=== PATIENT | female | born 1955 | race Caucasian/White ===

== ENCOUNTER → 2016-11-04 | Outpatient (CLI) | payer BC ==
--- NOTE | 2016-11-04 13:56 | CT ---
EXAMINATION TYPE: CT sinus wo con DATE OF EXAM: 11/04/2016 COMPARISON: NONE HISTORY: Sinusitis CT DLP: [address] of the paranasal sinuses was performed in the axial and coronal planes. Bone and soft tissue settings are submitted. The paranasal sinuses demonstrate normal aeration and development. The paranasal sinuses are free of mucosal thickening or air fluid level. The osteal meatal units are patent bilaterally. Nasal septal deviation from right to left. No bony destructive changes are seen within the field of view. IMPRESSION: Nasal septal deviation from right to left.
== END | disposition home or self-care (01) ==
LOC: RADCTMAIN 13:07
PROVIDERS: ATTEND Otolaryngology
DX: J34.2 Deviated nasal septum (principal); J32.9 Chronic sinusitis, unspecified
CPT/HCPCS: 70486

== ENCOUNTER → 2020-02-12 | Outpatient (CLI) | payer MEDICARE, OTHER | END | disposition home or self-care (01) | LOC: LABWHC1 10:38 | PROVIDERS: ATTEND Internal Medicine | DX: Z20.828 Contact with and (suspected) exposure to other viral communicable diseases (principal) | CPT/HCPCS: U0003; C9803 ==

== ENCOUNTER → 2020-02-18 | Outpatient (CLI) | payer MEDICARE, OTHER ==
--- NOTE | 2020-02-18 14:34 | XR ---
EXAMINATION TYPE: XR chest 2V DATE OF EXAM: 02/18/2020 COMPARISON: NONE HISTORY: Shortness of breath TECHNIQUE: Frontal and lateral views of the chest are obtained. FINDINGS: Scattered senescent parenchymal changes noted. Hyperinflation compatible with COPD. No evidence for infiltrate. No evidence for atelectasis. Heart size is stable. Mediastinal structures are stable and grossly unremarkable. No evidence for hilar prominence. Degenerative changes dorsal spine. IMPRESSION: 1. No evidence for acute pulmonary disease.
== END | disposition home or self-care (01) ==
LOC: LABPAT 11:40
PROVIDERS: ATTEND Orthopaedic Surgery Orthopaedic Surgery of the Spine
DX: Z01.818 Encounter for other preprocedural examination (principal); Z79.01 Long term (current) use of anticoagulants; M48.02 Spinal stenosis, cervical region
CPT/HCPCS: 71046

== ENCOUNTER → 2020-04-07 | Outpatient (CLI) | payer MEDICARE, OTHER ==
[2020-04-07 12:22] LABS: Appearance,Urine Clear (Clear); Basophils # (A) 0.1 k/uL (0-0.2); Basophils % (A) 1 %; Bilirubin,Urine Negative (Negative); Blood,Urine Negative (Negative); Color,Urine Light Yellow; Eosinophils # (A) 0.2 k/uL (0-0.7); Eosinophils % (A) 5 %; Glucose,Urine (UA) Negative (Negative); HCT 39.6 % (34.0-46.0); HGB 12.7 gm/dL (11.4-16.0); Hypochromasia Moderate; Ketones,Urine Negative (Negative); Leukocyte Esterase,Urine Negative (Negative); Lymphocytes # (A) 1.1 k/uL (1.0-4.8); Lymphocytes % (A) 21 %; MCH 28.8 pg (25.0-35.0); MCHC 32.1 g/dL (31.0-37.0); MCV 89.6 fL (80.0-100.0); Mean Platelet Volume 7.6; Monocytes # (A) 0.3 k/uL (0-1.0); Monocytes % (A) 6 %; Neutrophils # (A) 3.4 k/uL (1.3-7.7); Neutrophils % (A) 65 %; Nitrite,Urine Negative (Negative); PH, Urine 6.5 (5.0-8.0); Platelet Count 268 k/uL (150-450); Protein,Urine Negative (Negative); RBC 4.42 m/uL (3.80-5.40); RDW 15.1 % (11.5-15.5); Specific Gravity,Urine 1.006 (1.001-1.035); Urobilinogen,Urine <2.0 mg/dL (<2.0); WBC 5.3 k/uL (3.8-10.6)
[2020-04-07 12:27] LABS: INR 0.9 (<1.2); Partial Thromboplastin Time 22.4 sec (22.0-30.0); Prothrombin Time 9.6 sec (9.0-12.0)
[2020-04-07 12:31] LABS: ALT 26 U/L (4-34); AST 27 U/L (14-36); African American GFR (CKD) >90 (>60 ml/min/1.73 sqM); Albumin 3.6 g/dL (3.5-5.0); Alkaline Phosphatase 102 U/L (38-126); Anion Gap 5 mmol/L; Blood Urea Nitrogen 16 mg/dL (7-17); Calcium 9.6 mg/dL (8.4-10.2); Carbon Dioxide 27 mmol/L (22-30); Chloride 108 mmol/L (98-107); Glucose 100 mg/dL (74-99); Non-African American GFR(CKD) >90 (>60 ml/min/1.73 sqM); Potassium 4.4 mmol/L (3.5-5.1); Sodium 140 mmol/L (137-145); Total Bilirubin 0.4 mg/dL (0.2-1.3)
--- NOTE | 2020-04-07 12:35 | XR ---
EXAMINATION TYPE: XR chest 2V DATE OF EXAM: 04/07/2020 COMPARISON: Chest x-ray February 18, 2020 HISTORY: Presurgical testing. TECHNIQUE: Frontal and lateral views of the chest are obtained. FINDINGS: There is no focal air space opacity, pleural effusion, or pneumothorax seen. The cardiac silhouette size is within normal limits. The osseous structures are intact. IMPRESSION: No acute cardiopulmonary process. No significant change from prior.
== END | disposition home or self-care (01) ==
LOC: LABPAT 11:25
PROVIDERS: ATTEND Orthopaedic Surgery Orthopaedic Surgery of the Spine
DX: Z01.818 Encounter for other preprocedural examination (principal); M48.02 Spinal stenosis, cervical region
CPT/HCPCS: 71046; 80053; 81003; 85025; 85610; 85730

== ENCOUNTER 2020-04-16 06:48 | Day surgery (SDC) | payer MEDICARE, OTHER ==
[2020-02-18 14:29] LABS: HCT 39.7 % (34.0-46.0); HGB 12.8 gm/dL (11.4-16.0); Hypochromasia Slight; MCH 28.3 pg (25.0-35.0); MCHC 32.2 g/dL (31.0-37.0); MCV 87.9 fL (80.0-100.0); Platelet Count 295 k/uL (150-450); RBC 4.52 m/uL (3.80-5.40); RDW 15.8 % (11.5-15.5); WBC 6.5 k/uL (3.8-10.6)
[2020-02-18 14:40] LABS: Prothrombin Time 10.1 sec (9.0-12.0)
[2020-02-18 14:42] LABS: African American GFR (CKD) >90 (>60 ml/min/1.73 sqM); Anion Gap 4 mmol/L; Blood Urea Nitrogen 15 mg/dL (7-17); Calcium 9.7 mg/dL (8.4-10.2); Carbon Dioxide 31 mmol/L (22-30); Chloride 104 mmol/L (98-107); Glucose 89 mg/dL (74-99); Non-African American GFR(CKD) 81 (>60 ml/min/1.73 sqM); Potassium 4.5 mmol/L (3.5-5.1); Sodium 139 mmol/L (137-145)
[2020-02-18 14:50] LABS: Appearance,Urine Clear (Clear); Bilirubin,Urine Negative (Negative); Blood,Urine Negative (Negative); Color,Urine Yellow; Glucose,Urine (UA) Negative (Negative); Ketones,Urine Negative (Negative); Leukocyte Esterase,Urine Large (Negative); Mucus,Urine Occasional /hpf; Nitrite,Urine Negative (Negative); PH, Urine 5.5 (5.0-8.0); Protein,Urine Negative (Negative); RBC,Urine 3 /hpf (0-5); Specific Gravity,Urine 1.015 (1.001-1.035); Squamous Epithelial Cell,Urine 4 /hpf (0-4); Urobilinogen,Urine <2.0 mg/dL (<2.0); WBC,Urine 9 /hpf (0-5)
[2020-04-08 09:30] VITALS: BMI 29.7
[~2020-04-16 06:48] MED LIST: LACTATED RINGERS 1,000 ML IV SCH; LIDOCAINE 1% (10MG/ML) FOR IV START INTRADERMA PRN; MIDAZOLAM 2 MG/2 ML VIAL IV PRN; ONDANSETRON 4 MG/2 ML VIAL IVP ONE; ceFAZolin 1,000 MG in SODIUM CHLORIDE 0.9% IRRIGATIO 1,000 ML IRRIGATION ONE
[2020-04-16] MEDS ORDERED: HYDROmorphone 0.5 MG/0.5 ML SYRINGE IVP PRN ×2 (07:00→10:28)
[2020-04-16] MEDS ORDERED: DEXAMETHASONE SOD PHOSPHATE 10 MG/ML 1 ML VIAL ONE (08:00)
[2020-04-16] MEDS ORDERED: NEOSTIGMINE 1 MG/ML 10 ML VIAL ONE (08:00)
[2020-04-16] MEDS ORDERED: SUCCINYLCHOLINE CHLORIDE 100 MG/5 ML SYR IV ONE (08:00)
[2020-04-16] MEDS ORDERED: fentaNYL (PF) 50 MCG/ML 2 ML AMP ONE (08:00)
[2020-04-16] MEDS ORDERED: PROPOFOL 10 MG/ML 20 ML VIAL IV ONE (08:00)
[2020-04-16] MEDS ORDERED: MIDAZOLAM 2 MG/2 ML VIAL ONE (08:00)
[2020-04-16] MEDS ORDERED: ROCURONIUM 10 MG/ML (10 ML VIAL) IV ONE (08:00)
[2020-04-16] MEDS ORDERED: GLYCOPYRROLATE 0.2 MG/ML 2 ML VIAL ONE (08:00)
[2020-04-16] MEDS ORDERED: ceFAZolin 1,000 MG VIAL IVPB ONE (08:25)
[2020-04-16] MEDS ORDERED: GELATIN SPONGE,ABSORB (LARGE) 1 EACH SPONGE MISCELLANE ONE (08:30)
[2020-04-16] MEDS ORDERED: THROMBIN (BOVINE) 5,000 UNIT VIAL MISCELLANE ONE (08:30)
[2020-04-16] MEDS ORDERED: LIDOCAINE 0.5%-EPI 1:200,000 50 ML VIAL SQ ONE ×2 (08:36)
--- NOTE | 2020-04-16 09:23 | XR ---
EXAMINATION TYPE: XR cervical spine 1V DATE OF EXAM: 04/16/2020 COMPARISON: NONE HISTORY: Neck pain. TECHNIQUE: Portable crosstable lateral view of cervical spine is obtained intraoperatively. FINDINGS: Images for surgical planning and not for diagnostic purposes. Metallic pointer localizes to the C5-C6 disc space level on image saved. IMPRESSION: As above.
[2020-04-16] MEDS ORDERED: LACTATED RINGERS 1,000 ML IV ONE (09:56)
--- NOTE | 2020-04-16 10:26 | XR ---
EXAMINATION TYPE: XR cervical spine 1V DATE OF EXAM: 04/16/2020 COMPARISON: X-ray earlier today. HISTORY: Neck pain. TECHNIQUE: Single portable crosstable lateral view cervical spine is obtained intraoperatively. FINDINGS: Endotracheal tube is partially imaged. New anterior fusion plate with radiodense rectangula r disc spacers from C3 through C6 levels. Alignment is satisfactory on intraoperative crosstable late ral view. IMPRESSION: As above.
[2020-04-16] MEDS ORDERED: BENZOCAINE/MENTHOL LOZENG 1 EACH LOZENGE MUCOUS MEM PRN (10:28)
[2020-04-16] MEDS ORDERED: ACETAMINOPHEN TAB 325 MG TAB PO PRN (10:29)
[2020-04-16] MEDS ORDERED: ONDANSETRON 4 MG/2 ML VIAL IVP PRN (10:29)
[2020-04-16] MEDS ORDERED: traMADol 50 MG TAB PO PRN (10:30)
--- NOTE | 2020-04-16 10:35 | P.OP ---
Date of Procedure: 04/16/20 Preoperative Diagnosis: Cervical stenosis C3 4 C4 5 C5 6, herniated nucleus pulposis C34 C4 5 C5 6, neck pain, however extremity radiculopathy, extremity weakness, degenerative disc disease Postoperative Diagnosis: Same Anesthesia: GETA Pathology: none sent Condition: stable Disposition: PACU Description of Procedure: BRIEF OPERATIVE NOTE Preoperative Diagnosis:Cervical stenosis C3 4 C4 5 C5 6, herniated nucleus pulposis C34 C4 5 C5 6, neck pain, however extremity radiculopathy, extremity weakness, degenerative disc disease Postoperative Diagnosis:Cervical stenosis C3 4 C4 5 C5 6, herniated nucleus pulposis C34 C4 5 C5 6, neck pain, however extremity radiculopathy, extremity weakness, degenerative disc disease Procedure: Anterior cervical decompression and fusion C3 4 C4 5 C5 6 with discectomy Placement of interbody graft C3 4 C4 5 C5 6 Application of anterior cervical plate C3 4 56 Surgeon: Dr. Ulloa Internal Medicine Physician Assistant: Terell Javier is present throughout the entire the case persistence during positioning, dissection, exposure, visualization, and all crucial elements of the case as well as closure. Anesthesia: General anesthesia per Dr. Gonzalez Estimated blood loss: Approximately 50 mL Complications: None apparent Components implanted: K2M [place] anterior cervical plate system with screws and Vikos interbody allograft bone graft and 1 mL of DBX bone putty Disposition: To recovery room in good stable condition. OPERATIVE INDICATIONS The patient has had long-standing issues in their neck and upper extremities. She was found have significant changes at her neck evidence of disc herniation with stenosis at C3 4 C4 5 C5 6 and disc degeneration at C6 7. Her symptoms: Well with her neck and imaging findings particularly from C3 to C6. I felt that she could do well with intervention targeting C3 4 C4 5 and C5 6 as he is correlate best with her symptomatology. The patient has been through conserv ative treatment. She is not having any prolonged benefit despite aggressive conservative care. We discussed various treatment options including surgery, and the patient wishes to proceed with surgery We discussed the risk, patient's alternatives and benefits of surgery including but not limited to, risk of bleeding risk of infection, risk of need for further surgery, risk of decreased, loss of motion, muscle function, malunion nonunion, hardware failure, nerve damage, paralysis, heart attack, and . OPERATIVE SUMMARY After discussing all the risks, patient alternatives and benefits at length, the patient elected to proceed with surgical intervention, signed informed consent, and presented for their procedure. The patient was seen and examined in the preoperative holding area and the surgical site was marked. The patient was given antibiotics and brought to the operating room. The patient was positioned on the operating room table in a supine position being careful to pad any bony prominences and pressure points. The patient was sedated and intubated by anesthesia in standard fashion. Once the airway and C- spine were stabilized the patient's arms were padded and tucked at her side, with her shoulders gently taped. The head was placed in a donut pad with the neck in good neutral alignment and position. We were careful to maintain the patient's cervical spine and good neutral alignment and position throughout. The patient was prepped and draped in a normal standard fashion. An appropriate timeout and keystone protocol performed. We were able to proceed with the surgery. The local wound area was infiltrated with local anesthetic. An incision was made transversely approximately 2-1/2 cm over the appropriate levels over C5. Dissection was taken down subcutaneously to the level of the platysma which was split in line with its fibers. Dissection was taken with a carotid approach, with the trachea and esophagus medial and the carotid sheath laterally. We dissected down to the anterior surface of the vertebral bodies. Intraoperative x-ray was taken which showed a marker at the appropriate level of C5 6. With the appropriate level positively confirmed, we were able to proceed with discectomy at the appropriate levels starting at C3 4 and then moving C4 5 and C5 6. All of the operative levels were exposed appropriately. The patient had all their twitches back, and there was no evidence of recurrent laryngeal issue. The wound was copiously irrigated and suctioned dry as had been done periodically throughout the case. At the appropriate level/levels, I established an annulotomy with an 11 blade scalpel. There was severe near- complete disc height loss at both C4 5 and C5 6. There were large anterior osteophytes at each levels which had been taken down. A discectomy was performed with a combination of pituitary rongeurs, curettes, a high-speed bur, and Kerrison rongeurs. The posterior longitudinal ligament was taken down as were any posterior osteophytes. This gave good central and bilateral foraminal decompression. There is no evidence of any dural tear or leak. The endplates were prepared with a high-speed bur. With the endplates in good parallel position, I was able to size for the appropriate size interbody graft. The wound was irrigated and suctioned dry the graft was prepared and malleted into position. It had good alignment and position with the anterior surface flush with the anterior surface of the vertebral bodies. This was done similarly the appropriate levels from C3 to C6. With the grafts intact, I was able to measure and contour and appropriate sized plate. The plate was positioned at the midline over the appropriate levels from C3 to C6. Screw holes were established with a hand drill and drill guide. Screws were placed in good alignment and position with excellent bony purchase. They were seated under the locking device. The construct was checked and found to be stable. Intraoperative x-ray was taken which showed good alignment and position of the implants at the appropriate levels. There was no evidence of any dural tear or leak. Good hemostasis was maintained. The wound was copiously irrigated and suctioned dry as had been done periodically throughout the case. The platysma was closed with absorbable suture. The subcutaneous tissue was closed. The subcuticular tissue was closed with absorbable suture. The wound was cleaned and dried and dressed appropriately. A soft cervical collar was placed appropriately. The patient was woken up by anesthesia, extubated, transferred back gently to their hospital bed and brought to the recovery room in good stable condition. The patient will be admitted to the hospital for appropriate postoperative care, medical management and monitoring. We will continue to follow them closely about the postoperative course.
[2020-04-16] MEDS: HYDROmorphone 0.5 MG/0.5 ML SYRINGE IVP PRN ×4 (10:41→10:59)
[2020-04-16] MEDS: SODIUM CHLORIDE 0.9% 1,000 ML IV SCH ×2 (16:42→23:50)
[2020-04-16] MEDS ORDERED: ALBUTEROL NEBULIZED 2.5 MG/3 ML INHALATION PRN (20:43)
[2020-04-17] MEDS: HYDROcodone/APAP 5-325MG 1 EACH TAB PO PRN ×2 (02:27→08:04)
[2020-04-17] MEDS ORDERED: LEVOTHYROXINE 88 MCG TAB PO SCH (06:30)
[2020-04-17] MEDS ORDERED: PANTOPRAZOLE 40 MG TABLET PO SCH (07:30)
[2020-04-17 08:56] VITALS: BP 120/71; PULSE 78; RESP 20; TEMP 97.9
[2020-04-17] MEDS ORDERED: hydroCHLOROthiazide 12.5 MG CAP PO SCH (09:00)
[2020-04-17] MEDS ORDERED: ASCORBIC ACID 500 MG TAB PO SCH (09:00)
[2020-04-17] MEDS ORDERED: VENLAFAXINE HCL ER 75 MG CAP PO SCH (09:00)
[2020-04-17] MEDS ORDERED: SENNOSIDES-DOCUSATE SODIUM 1 EACH TAB PO SCH ×2 (09:00)
[2020-04-17] MEDS ORDERED: CHOLECALCIFEROL 1,000 UNIT TAB PO SCH (09:00)
--- NOTE | 2020-04-17 09:55 | P.DS ---
Providers Date of admission: 04/16/20 Attending physician: Anita Ulloa Primary care physician: Diana Kemal [facility] Hospital Course: The patient presented on the day of admission as per their operative note. She had significant cervical stenosis with herniation and underwent anterior cervical decompression with discectomy and fusion as per her operative note yesterday. She feels her arms have made improvement she still has some numbness in her hands as expected. She feels her neck is doing well but has some soreness at the base of her neck. This is being controlled with oral medications. She is tolerating her regular diet. Physical Exam The incision site is clean dry and intact. There is no erythema no drainage. There is no purulence no evidence of infection. Her neck is soft and supple. There is no drainage. Abdomen soft and nontender. Chest has good excursion with deep inspiration and expiration. The patient has active and passive range of motion intact at the upper and lower extremities. There is no acute change in neurologic status. She has good motion at her upper extremities. Bilaterally Hospital Course Postoperative day #1 status post anterior cervical decompression with discectomy and fusion C3 4 C4 5 C5 6 for her cervical stenosis with disc herniation and upper extremity radiculopathy. Patient is doing well. The patient has been making good progress postoperatively. They have completed the prophylactic antibiotics without any signs or symptoms of infection. The patient has been able to advance their diet, and is tolerating diet adequately. The pain was initially controlled with IV medications and is now controlled appropriately with oral medications. The patient has been able to increase their mobilization. The patient has progressed appropriately. I think they are in good stable condition for discharge today. They will be sent home with appropriate prescriptions. I answered their questions to the best of my ability in a language that they can understand and they are agreeable with the plan. They will follow up as directed in approximately 2 weeks or sooner having a problem . Patient Condition at Discharge: Good Plan - Discharge Summary Discharge Rx Participant: Yes New Discharge Prescriptions: New HYDROcodone/APAP 5-325MG [[place] 5] 1 each PO Q6HR PRN #28 tab PRN Reason: Pain No Action Cholecalciferol [Vitamin D3 (25 Mcg = 1000 Iu)] 2,000 unit PO DAILY Ascorbic Acid [Vitamin C] 1,000 mg PO DAILY Loratadine-Pseudoeph 10-240 mg [Claritin-D 24 Hour] 1 tab PO DAILY Albuterol Sulfate [Ventolin HFA] 1 - 2 puff INHALATION Q6H PRN PRN Reason: Asthma traMADol HCL 50 mg PO BID PRN PRN Reason: Pain Vit C/E/Zn/Coppr/Lutein/Zeaxan [Preservision Areds 2 Softgel] 2 each PO DAILY Omeprazole 20 mg PO QAM Nasal Gel 1 dose INTRANASAL DAILY PRN PRN Reason: Dry Nose Naproxen 500 mg PO BID Levothyroxine Sodium 88 mcg PO QAM Hydrochlorothiazide [hydroCHLOROthiazide] 12.5 mg PO QAM Calcium Carbonate/Vitamin D3 [Caltrate 600 Plus D3 Tablet] 1 each PO HS Carboxymethylcellulos/Glycerin [Refresh Relieva 0.5-0.9% Drop] 1 drop BOTH EYES DAILY Allergy Eyes Eye Drop 1 drop BOTH EYES DAILY PRN PRN Reason: Allergic Reaction Venlafaxine HCl ER [Effexor Xr] 75 mg PO QAM Discharge Medication List Albuterol Sulfate [Ventolin HFA] 1 - 2 puff INHALATION Q6H PRN 02/19/20 [History] Allergy Eyes Eye Drop 1 drop BOTH EYES DAILY PRN 02/19/20 [History] Ascorbic Acid [Vitamin C] 1,000 mg PO DAILY 02/19/20 [History] Calcium Carbonate/Vitamin D3 [Caltrate 600 Plus D3 Tablet] 1 each PO HS 02/19/20 [History] Carboxymethylcellulos/Glycerin [Refresh Relieva 0.5-0.9% Drop] 1 drop BOTH EYES DAILY 02/19/20 [History] Cholecalciferol [Vitamin D3 (25 Mcg = 1000 Iu)] 2,000 unit PO DAILY 02/19/20 [History] Hydrochlorothiazide [hydroCHLOROthiazide] 12.5 mg PO QAM 02/19/20 [History] Levothyroxine Sodium 88 mcg PO QAM 02/19/20 [History] Loratadine-Pseudoeph 10-240 mg [Claritin-D 24 Hour] 1 tab PO DAILY 02/19/20 [History] Naproxen 500 mg PO BID 02/19/20 [History] Nasal Gel 1 dose INTRANASAL DAILY PRN 02/19/20 [History] Omeprazole 20 mg PO QAM 02/19/20 [History] Vit C/E/Zn/Coppr/Lutein/Zeaxan [Preservision Areds 2 Softgel] 2 each PO DAILY 02/19/20 [History] traMADol HCL 50 mg PO BID PRN 02/19/20 [History] HYDROcodone/APAP 5-325MG [[place] 5] 1 each PO Q6HR PRN #28 tab 04/16/20 [Rx] Venlafaxine HCl ER [Effexor Xr] 75 mg PO QAM 04/16/20 [History] Follow up Appointment(s)/Referral(s): Anita Ulloa DO [Doctor of Osteopathic Medicine] - 2 Weeks Activity/Diet/Wound Care/Special Instructions: Wants Influenza vaccine before discharge. Keep site clean. May shower with waterproof Tegaderm intact. Do not soak in a tub. After 72 hours postoperatively, patient May remove dressing and then may shower with area uncovered. Leave Steri-Strips intact and allow them to fray off on their own. May ambulate as tolerated. Avoid heavy or rigorous activity. No repetitive bending twisting or lifting. No overhead work. Discharge Disposition: HOME SELF-CARE
[2020-04-17] MEDS ORDERED: PNEUMOCOCCAL VACC-PNEUMOVAX 23 25 MCG/0.5 ML VIAL IM ONE (10:08)
== END 2020-04-17 13:05 | disposition home or self-care (01) ==
LOC: OR 06:48 → 6PED 10:26 → OR 04-17 13:05
PROVIDERS: ATTEND Orthopaedic Surgery Orthopaedic Surgery of the Spine
DX: M50.11 Cervical disc disorder with radiculopathy, high cervical region (principal); M50.01 Cervical disc disorder with myelopathy, high cervical region; M47.22 Other spondylosis with radiculopathy, cervical region; M48.02 Spinal stenosis, cervical region; M25.78 Osteophyte, vertebrae; M43.8X2 Other specified deforming dorsopathies, cervical region; M79.12 Myalgia of auxiliary muscles, head and neck; E66.9 Obesity, unspecified; E03.9 Hypothyroidism, unspecified; E78.2 Mixed hyperlipidemia; J45.909 Unspecified asthma, uncomplicated; M19.90 Unspecified osteoarthritis, unspecified site; K21.9 Gastro-esophageal reflux disease without esophagitis; F32.9 Major depressive disorder, single episode, unspecified; Z23 Encounter for immunization; Z97.3 Presence of spectacles and contact lenses; Z88.5 Allergy status to narcotic agent; Z88.2 Allergy status to sulfonamides; Z91.048 Other nonmedicinal substance allergy status; Z91.09 Other allergy status, other than to drugs and biological substances; Z98.891 History of uterine scar from previous surgery; Z98.890 Other specified postprocedural states; Z87.891 Personal history of nicotine dependence; Z79.890 Hormone replacement therapy; Z79.899 Other long term (current) drug therapy; Z79.1 Long term (current) use of non-steroidal anti-inflammatories (NSAID); Z88.8 Allergy status to other drugs, medicaments and biological substances; Z68.30 Body mass index [BMI] 30.0-30.9, adult; Z91.013 Allergy to seafood
CPT/HCPCS: 22551; 22552 ×2; 22846; 20930; 20931; 72020; 90732; C1713 ×2; C1762 ×2; G0009; J2250; J1100; J2710; J0690 ×2; J2405; J3010; J0330; J2704; J1170; 36415; 80048; 81001; 85027; 85610; 85730; 86850; 86900; 86901

== ENCOUNTER → 2020-12-31 | Outpatient (CLI) | payer MEDICARE, OTHER | END | disposition home or self-care (01) | LOC: LABWHC1 15:43 | PROVIDERS: ATTEND Internal Medicine | DX: Z20.822 Contact with and (suspected) exposure to COVID-19 (principal) | CPT/HCPCS: U0003; C9803; U0005 ==

== ENCOUNTER → 2021-04-22 | Outpatient (CLI) | payer MEDICARE, OTHER ==
[2021-04-22 16:36] LABS: Anisocytosis Slight; HCT 39.7 % (34.0-46.0); HGB 12.1 gm/dL (11.4-16.0); Hypochromasia Marked; MCH 25.1 pg (25.0-35.0); MCHC 30.3 g/dL (31.0-37.0); MCV 82.9 fL (80.0-100.0); Mean Platelet Volume 7.7; Platelet Count 304 k/uL (150-450); RBC 4.79 m/uL (3.80-5.40); RDW 17.5 % (11.5-15.5); WBC 8.3 k/uL (3.8-10.6)
[2021-04-22 16:37] LABS: Appearance,Urine Clear (Clear); Bilirubin,Urine Negative (Negative); Blood,Urine Negative (Negative); Color,Urine Yellow; Glucose,Urine (UA) Negative (Negative); Ketones,Urine Negative (Negative); Leukocyte Esterase,Urine Negative (Negative); Nitrite,Urine Negative (Negative); Protein,Urine Trace (Negative); Specific Gravity,Urine 1.025 (1.001-1.035)
[2021-04-22 16:47] LABS: ALT 20 U/L (4-34); AST 26 U/L (14-36); African American GFR (CKD) >90 (>60 ml/min/1.73 sqM); Albumin 4.3 g/dL (3.5-5.0); Alkaline Phosphatase 123 U/L (38-126); Anion Gap 9 mmol/L; Blood Urea Nitrogen 16 mg/dL (7-17); Carbon Dioxide 26 mmol/L (22-30); Chloride 105 mmol/L (98-107); Glucose 90 mg/dL (74-99); Non-African American GFR(CKD) 83 (>60 ml/min/1.73 sqM); Potassium 4.3 mmol/L (3.5-5.1); Sodium 140 mmol/L (137-145); Total Bilirubin 0.5 mg/dL (0.2-1.3); Total Protein 7.1 g/dL (6.3-8.2)
[2021-04-22 16:49] LABS: Partial Thromboplastin Time 22.5 sec (22.0-30.0); Prothrombin Time 10.6 sec (9.0-12.0)
== END | disposition home or self-care (01) ==
LOC: LABPAT 15:10
PROVIDERS: ATTEND Orthopaedic Surgery Sports Medicine
DX: Z01.812 Encounter for preprocedural laboratory examination (principal); M17.11 Unilateral primary osteoarthritis, right knee
CPT/HCPCS: 36415; 80053; 81003; 85027; 85610; 85730; 87070

== ENCOUNTER 2021-05-07 06:38 | Observation (INO) | payer MEDICARE, OTHER ==
[2021-04-29 09:55] VITALS: BMI 30.2
[~2021-05-07 06:38] MED LIST changes: +ACETAMINOPHEN TAB 500 MG TAB PO PRN; +GABAPENTIN 300 MG CAP PO PRN; -LACTATED RINGERS 1,000 ML IV SCH; -LIDOCAINE 1% (10MG/ML) FOR IV START INTRADERMA PRN; +MELOXICAM 7.5 MG TAB PO PRN; -ONDANSETRON 4 MG/2 ML VIAL IVP ONE; +ONDANSETRON 4 MG/2 ML VIAL IVP PRN; +TRANEXAMIC ACID 1,000 MG in SODIUM CHLORIDE 0.9% 100 ML IVPB PRN; -ceFAZolin 1,000 MG in SODIUM CHLORIDE 0.9% IRRIGATIO 1,000 ML IRRIGATION ONE
[2021-05-07] MEDS ORDERED: HYDROmorphone 0.5 MG/0.5 ML SYRINGE IVP PRN ×2 (07:00→10:13)
[2021-05-07] MEDS ORDERED: DEXAMETHASONE SOD PHOSPHATE 4 MG/ML 1 ML VIAL IVP ONE (07:25)
[2021-05-07] MEDS: LACTATED RINGERS 1,000 ML IV SCH ×3 (07:27→21:28)
[2021-05-07] MEDS ORDERED: MIDAZOLAM 2 MG/2 ML VIAL IVP ONE (07:45)
[2021-05-07] MEDS ORDERED: fentaNYL (PF) 50 MCG/ML 2 ML AMP IVP ONE (07:45)
[2021-05-07] MEDS ORDERED: MIDAZOLAM 2 MG/2 ML VIAL ONE (08:08)
[2021-05-07] MEDS ORDERED: ROPIVACAINE 5 MG/ML 30 ML VIAL ONE (08:08)
[2021-05-07] MEDS ORDERED: PROPOFOL 10 MG/ML 20 ML VIAL IV ONE (08:08)
[2021-05-07] MEDS ORDERED: SODIUM CHLORIDE 0.9% (PF) 10 ML VIAL ONE (08:08)
[2021-05-07] MEDS ORDERED: fentaNYL (PF) 50 MCG/ML 2 ML AMP ONE (08:08)
[2021-05-07] MEDS ORDERED: ePHEDrine 50 MG/ML 1 ML AMP ONE (08:08)
[2021-05-07] MEDS ORDERED: SODIUM CHLORIDE 0.9% 100 ML BAG ONE (08:08)
[2021-05-07] MEDS ORDERED: PHENYLEPHRINE-0.9% NACL SYG 1,000 MCG/10 ML SYRINGE ONE (08:08)
[2021-05-07] MEDS ORDERED: TRANEXAMIC ACID 1,000 MG/10 ML VIAL ONE (08:08)
[2021-05-07] MEDS ORDERED: ceFAZolin 3,000 MG in SODIUM CHLORIDE 0.9% IRRIGATIO 3,000 ML IRRIGATION ONE (08:14)
[2021-05-07] MEDS ORDERED: LACTATED RINGERS 1,000 ML IV ONE (10:05)
[2021-05-07] MEDS ORDERED: HYDROmorphone 0.2 MG/1 ML SYRINGE IVP PRN (10:13)
[2021-05-07] MEDS ORDERED: NA PHOS,M-B/NA PHOS,DI-BA 133 ML ENEMA RECTAL PRN (10:13)
[2021-05-07] MEDS ORDERED: MAGNESIUM HYDROXIDE 2,400 MG/10 ML CUP PO PRN (10:13)
[2021-05-07] MEDS ORDERED: traMADol 50 MG TAB PO PRN (10:13)
[2021-05-07] MEDS ORDERED: ONDANSETRON 4 MG/2 ML VIAL IVP PRN (10:13)
[2021-05-07] MEDS ORDERED: bisacodyL 10 MG SUPP RECTAL PRN (10:13)
[2021-05-07] MEDS ORDERED: NALOXONE 0.4 MG/ML 1 ML VIAL IV PRN (10:13)
[2021-05-07] MEDS ORDERED: ACETAMINOPHEN TAB 325 MG TAB PO PRN (10:13)
[2021-05-07] MEDS ORDERED: ROPIVACAINE 0.2%-NS ON-Q PUMP 1,090 MG, EMPTY PAIN BALL 1 EACH MISCELLANE PRN (10:19)
--- NOTE | 2021-05-07 10:51 | P.ANPRN ---
Procedure Note - Anesthesia - Nerve Block Performed Right Adductor Canal Infusion Time Out Performed: Yes ([id number]) Date of Procedure: 05/07/21 Procedure Start Time: 07:44 Procedure Stop Time: 07:52 Location of Patient: PreOp Indication: Acute Post-Operative Pain, Requested by Surgeon Specifically requested for management of pain by DrMaritza: Lino Harris Sedation Type: Sedate with meaningful contact maintained Preparation: Sterile Prep, Sterile Dressing Position: Supine Catheter Depth at Skin (cm): 7 Catheter: None Needle Types: Pajunk Needle Gauge: 21 Ultrasound used to visualize needle placement: Yes Ultrasound used to observe medication spread: Yes Injectate: 0.5% Ropivacaine (see comment for volume) (15cc + 5 cc nacl) Blood Aspirated: No Pain Paresthesia on Injection Noted: No Resistance on Injection: Normal Image Stored and Saved: Yes Events: Uneventful and Well Tolerated
--- NOTE | 2021-05-07 10:52 | P.ANPRN ---
Procedure Note - Anesthesia - Nerve Block Performed Right iPack Single Time Out Performed: Yes ([id number]) Date of Procedure: 05/07/21 Procedure Start Time: 07:53 Procedure Stop Time: 07:57 Location of Patient: PreOp Indication: Acute Post-Operative Pain, Requested by Surgeon Specifically requested for management of pain by DrMaritza: Lino Harris Sedation Type: Sedate with meaningful contact maintained Preparation: Sterile Prep Position: Supine Catheter: None Needle Types: Pajunk Needle Gauge: 21 Ultrasound used to visualize needle placement: Yes Ultrasound used to observe medication spread: Yes Injectate: 0.5% Ropivacaine (see comment for volume) (15cc + 5cc nacl) Blood Aspirated: No Pain Paresthesia on Injection Noted: No Resistance on Injection: Normal Image Stored and Saved: Yes Events: Uneventful and Well Tolerated
--- NOTE | 2021-05-07 11:19 | XR ---
EXAMINATION TYPE: XR knee limited RT DATE OF EXAM: 05/07/2021 COMPARISON: None HISTORY: Postop alignment and prosthesis placement TECHNIQUE: 2 view right knee FINDINGS: Tibial and femoral components have been placed. No acute fractures are evident. Postop Soft tissue changes are present. IMPRESSION: 1. No acute fractures post right knee replacement.
--- NOTE | 2021-05-07 12:13 | OP ---
OPERATIVE REPORT DATE OF PROCEDURE: 05/07/2021 SURGEON: Lino Harris MD. STORE TEAM MEMBER: Mateusz Meek PA-C PREOPERATIVE DIAGNOSIS: Right knee osteoarthrosis. POSTOPERATIVE DIAGNOSIS: Right knee osteoarthrosis. OPERATION: Right total knee arthroplasty. ANESTHESIA: Spinal with sedation. ESTIMATED BLOOD LOSS: 100 mL. TOURNIQUET: Tourniquet time was 46 minutes at 250 mmHg. COMPLICATIONS: None apparent. DRAINS: None. DISPOSITION: Post-Anesthesia Care Unit INDICATIONS: Helga is a very pleasant 66-year-old female with longstanding history of right knee pain. History and physical examination are consistent with advanced right knee osteoarthrosis. She has been through significant nonoperative management up to this point. Further treatment options were discussed and she decided to go forward with right total knee arthroplasty. The risks of the procedure were discussed with her in detail. These risks included but were not limited to risk of infection, nerve damage, bleeding, pain, and a small risk of deep vein thrombosis which could lead to fatal pulmonary embolism. There was also a risk of loosening of the implant, which could require revision operation. The patient understands the risks. All of her questions were answered to her satisfaction. Appropriate informed consent was obtained. DESCRIPTION OF THE PROCEDURE: The patient was identified in the preoperative holding area. Surgical site was marked by both the patient and myself. She was given 2 grams of Ancef IV for prophylactic purposes. She was then transported to the operative suite. She was placed supine on the operating room table. A spinal anesthetic was then administered and dosed per the anesthesia department without apparent complication. Examination under anesthesia was then performed. The patient was 2-3 degrees shy of full extension. She had 100 degrees of flexion. The medial collateral ligament, lateral collateral ligament and posterior cruciate ligaments were stable. Tourniquet was then placed high on the right upper thigh, well padded in preparation for surgery. The patient's right lower extremity was then prepped and draped in the usual sterile fashion. A standard surgical pause was undertaken to ensure that we were operating on the correct site and that appropriate preoperative antibiotics had been given. All staff in the room were in agreement and we proceeded. The outlines of the patella were marked with a surgical pen. A planned 12 cm vertical incision centered over the patella was marked with a surgical pen. The leg was then exsanguinated with an Esmarch dressing. The knee was then flexed and the tourniquet was inflated to 250 mmHg. The total tourniquet time for the procedure was 46 minutes Incision was then made with a 10 blade scalpel. Dissection was carried down sharply to the overlying fascia. Great care was taken to minimize the skin flaps. The knee was then exposed using a standard medial parapatellar approach. A small cuff of quadriceps tendon was then left for suturing. She was in a bit of varus preoperatively. A standard medial release was then made. Superficial medial collateral ligament was dissected off of the bone and around to the posterior aspect of the proximal tibia. The medial meniscus was then excised as well. The lateral meniscus was also released anteriorly. The leg was then externally rotated. The patella was everted. The knee was flexed. Retractors were then placed to protect the collateral ligaments. I then proceeded to remove the infrapatellar fat pad. This was excised sharply tangentially with the fibers of the patellar tendon. I then proceeded to remove the peripheral osteophytes. This was done with a rongeur. I then proceeded with distal femoral resection. She did have near-full extension. A planned 9 mm resection was then done. The femoral canal was then entered in the midline of the femur approximately 10 mm anterior to the origin of the posterior cruciate ligament. The keren was then advanced down the center of the femur and placed intramedullary. Based on the preoperative radiographs, the angle between the anatomic and mechanical axis of the femur was approximately 4-5 degrees. The valgus angle of the distal femoral cutting guide was then set at 4 degrees for the right knee. The distal femoral cutting guide was then advanced over the intramedullary keren. This was seated firmly against the femur. I then, as mentioned, planned to take 9 mm off the distal femur. The cutting block was then secured onto the femur with pins. The jig was then removed. The distal femoral cut was made through the slot of the block. The pins were then removed and the distal femoral cutting block was removed. The accuracy of the distal femoral cuts was checked with 2 flat bars. I then proceeded with femoral sizing. The posterior referencing sizing guide was held firmly against the resected distal surface of the femur. The posterior condyles were resting on the posterior plane of the guide. The sizing stylus was then placed onto the anterior femur. The size was measured as a size 7. I then assessed for femoral rotation. The plan was for 3 degrees of external rotation. Three degrees of external rotation was placed onto the jig. These holes were then marked. I then confirmed the rotation by 3 separate methods. This was done using the epicondylar axis as well as Whitesides line and posterior referencing. It was deemed that the external rotation was proper. I then went forward with placing the femoral cutting block. This was placed over the previously placed pin holes. The Sarmad wing was then placed onto the anterior slots to ensure that we would not notch the anterior femur with the anterior femoral cut. I then proceeded with the anterior femoral cut. This was flush with the anterior cortex of the femur. The posterior cuts were then made followed by the anterior chamfer cut and then the posterior chamfer cut. The cutting block was then removed. Throughout the resection, the collateral ligaments were protected with retractors. I then placed a trial size 7 femur. It fit very nicely medial to lateral and it fit flush with the distal end of the femur. The drill holes were then made. I then proceeded with the tibial cut. I planned for a cruciate-retaining knee. The guide was placed and set for varus, valgus and for slope. The height was set for an approximate 2 mm resection from the medial tibial plateau, which was the lower side. I was happy with the alignment and the amount of resection. The cutting block was then pinned to the proximal tibia. The alignment keren was removed and the proximal tibia was resected with a reciprocating saw. Again this was done with retractors protecting the collateral ligaments as well as the posterior cruciate ligament. I then proceeded to evaluate the flexion and extension gaps. A 10 mm block was then placed. The flexion and extension gaps were equal. I then proceeded with resection of the posterior osteophytes. She had very minimal posterior osteophytes. This was done using a curved osteotome. This resected the posterior osteophytes, and posterior capsule stripping was done off the posterior aspect of the femur at this time. The osteophytes were then removed. I then proceeded with resection of the patella. The thickness of the patella was measured using the caliper. The thickness was 22 mm. The thickness of the anticipated patellar dome was taken into account. The resection was then performed and confirmed to be equal in 4 quadrants using a caliper. Approximately 14 mm of bone remained after resection. A 29 x 8 standard patellar trial was then placed. The holes were drilled and the trial was then placed. I then proceeded with sizing the tibial plate. A size D tibial plate fit very nicely. I then placed the trial femur, the tibial tray and the patellar button. A 10 mm trial tibial insert was also placed. The components fit very nicely. She had full extension and flexion. The extension and flexion gaps were equal and stable to both varus and valgus stress. The patella tracked appropriately. Tibial tray rotation was then marked with a Bovie. This was externally rotated properly. I then decided to proceed with cementing of all of our components. The knee was thoroughly irrigated with sterile saline solution with antibiotic via pulse lavage. The lateral geniculate artery was identified and cauterized. All blood was removed from the tibia, femur and patella with pulse lavage. I then proceeded with cementing. Two packs of antibiotic bone cement were prepared on the back table by the certified surgical tech/first assistant. I then proceeded with cementing of the tibia first. The cement was impacted into the keel as well as deeply seated into the bone. A second coat of cement was then placed. The tibia was then impacted into place. Excess cement was removed with Idalou's and Joker's. I then proceeded with cementing of the femoral component. The femoral component was also cemented using standard technique. Excess cement was removed. A 10 mm trial insert was then placed into the knee. It was brought into full extension with a constant axial load placed until the cement had hardened. The patellar component was then cemented. This was held firmly with a compressive device until the cement had dried. When the cement had dried, the knee was taken out of extension. All excess cement was removed from around the prosthesis. I then trialed the knee with a 10 mm insert. Flexion and extension gaps were appropriate. The knee was stable. It came into full extension. I decided to go forward with a 10 mm medial-congruent, cross-linked, cruciate-retaining tibial insert. Polyethylene was then placed onto the tibial tray and locked into place. The knee was then reduced. The knee was again further irrigated with sterile saline solution with antibiotic added. The tourniquet was then deflated. Total tourniquet time for the procedure was 46 minutes at 250 mmHg. Final components were Arjun Persona size 7 Tivanium cruciate-retaining femoral component, a size D tibial tray, a 10 mm medial- congruent, cruciate-retaining polyethylene insert and a 29 x 8 mm patella. I then proceeded with closure. Again the knee was thoroughly irrigated. The quadriceps tendon and the medial retinaculum were reapproximated with #2 Ethibond suture. The extensor mechanism was then closed with a running #2 Quill suture. Subcutaneous tissues were closed with 2-0 Vicryl interrupted suture. The skin was closed with a running 3-0 Quill suture. Dermabond was applied to the incision. Sterile compressive dressings were then applied. All sponge and needle counts were deemed correct prior to closure. The patient tolerated the procedure without apparent complication. She was transferred to the recovery room in stable condition. MMODL / IJN: [id number] /
[2021-05-07] MEDS: HYDROcodone/APAP 5-325MG 1 EACH TAB PO PRN (13:33)
[2021-05-07] MEDS: HYDROmorphone 0.5 MG/0.5 ML SYRINGE IVP PRN ×3 (15:12→21:19)
[2021-05-07] MEDS ORDERED: TEMAZEPAM 15 MG CAP PO PRN (21:00)
[2021-05-07] MEDS: ASPIRIN 81 MG PO SCH (21:20)
[2021-05-07] MEDS: SENNOSIDES-DOCUSATE SODIUM 1 EACH TAB PO SCH (21:20)
[2021-05-07] MEDS: HYDROcodone/APAP 10-325MG 1 EACH TAB PO PRN (23:50)
[2021-05-08] MEDS: HYDROcodone/APAP 5-325MG 1 EACH TAB PO PRN (02:15)
[2021-05-08 02:24] VITALS: RESP 18
[2021-05-08] MEDS: HYDROcodone/APAP 10-325MG 1 EACH TAB PO PRN (05:34)
[2021-05-08 06:23] LABS: Anisocytosis Slight; Basophils % (A) 0 %; Eosinophils % (A) 0 %; HCT 31.1 % (34.0-46.0); Hypochromasia Marked; Lymphocytes # (A) 1.5 k/uL (1.0-4.8); Lymphocytes % (A) 19 %; MCH 24.7 pg (25.0-35.0); MCHC 29.6 g/dL (31.0-37.0); MCV 83.3 fL (80.0-100.0); Mean Platelet Volume 7.2; Monocytes # (A) 0.5 k/uL (0-1.0); Monocytes % (A) 6 %; Neutrophils % (A) 73 %; Platelet Count 204 k/uL (150-450); RBC 3.74 m/uL (3.80-5.40); RDW 17.7 % (11.5-15.5); WBC 8.2 k/uL (3.8-10.6)
[2021-05-08 06:26] LABS: HGB 9.2 gm/dL (11.4-16.0)
[2021-05-08] MEDS: MULTIVITAMINS, THERA 1 EACH TAB PO SCH (07:16)
[2021-05-08] MEDS: ASPIRIN 81 MG PO SCH ×2 (07:16→20:30)
[2021-05-08] MEDS: LACTATED RINGERS 1,000 ML IV SCH ×2 (07:18→07:19)
[2021-05-08] MEDS: HYDROmorphone 0.5 MG/0.5 ML SYRINGE IVP PRN (08:47)
[2021-05-08] MEDS ORDERED: HYDROcodone/APAP 7.5-325MG 1 EACH TAB PO PRN ×2 (10:42)
[2021-05-08] MEDS ORDERED: oxyCODONE-APAP 7.5-325MG 1 EACH TAB PO PRN (10:44)
[2021-05-08] MEDS: diazePAM 5 MG TAB PO PRN ×2 (10:52→20:30)
--- NOTE | 2021-05-08 10:55 | P.PN ---
Subjective Progress Note Date: 05/08/21 Principal diagnosis: Right TKA Patient is seen at bedside this morning. She is postop day #1 from right total knee arthroplasty. She has pain at the surgical site as expected but denies any new complaints. She denies numbness, tingling or calf pain. Review of systems is negative for fever, chills, chest pain, shortness of breath or other Objective - Vital Signs Vital signs: Vital Signs Temp 98.2 F 05/08/21 07:54 Pulse 63 05/08/21 07:54 Resp 18 05/08/21 07:54 BP 113/58 05/08/21 07:54 Pulse Ox 98 05/08/21 07:54 Intake & Output 05/07/21 05/08/21 05/08/21 18:59 06:59 18:59 Intake Total 2201 Output Total 100 Balance 2101 Weight 67.9 kg Intake: IV 1201 Intake, IV Titration 350 Amount Lactated Ringers 1,000 ml 300 @ 100 mls/hr IV .Q10H TOSIN Rx#:[id number] ceFAZolin 2 gm In Sodium 50 Chloride 0.9% 50 ml @ 100 mls/hr IVPB Q8HR TOSIN Rx# :[id number] Oral 650 Output: Estimated Blood Loss 100 Other: Voiding Method Bedside Commode # Voids 4 1 - Exam Inspection reveals a benign surgical wound. There is no active bleeding or drainage. Neurovascular status is intact throughout the lower extremity with motor and sensation fully intact. Calf is soft and nontender. 2+ dorsalis pedis pulse and less than 2 second cap refill is present. - Constitutional General appearance: Present: no acute distress - Labs CBC & Chem 7: 05/08/21 05:31 Labs: Abnormal Lab Results - Last 24 Hours (Table) 05/08/21 Range/Units 05:31 RBC 3.74 L (3.80-5.40) m/uL Hgb 9.2 L D (11.4-16.0) gm/dL Hct 31.1 L (34.0-46.0) % MCH 24.7 L (25.0-35.0) pg MCHC 29.6 L (31.0-37.0) g/dL RDW 17.7 H (11.5-15.5) % Assessment and Plan (1) Status post total right knee replacement Narrative/Plan: She will continue with routine postop orthopedic protocol including pain management, wound care, PT, DVT prophylaxis and medical management. We will adjust pain meds today. Expect that she will transfer to home tomorrow Current Visit: Yes Status: Acute Priority: Medium Code(s): Z96.651 - PRESENCE OF RIGHT ARTIFICIAL KNEE JOINT SNOMED Code(s): 6710318856733 Time with Patient: Less than 30
[2021-05-08] MEDS: oxyCODONE-APAP 7.5-325MG 1 EACH TAB PO PRN ×2 (11:01→16:51)
[2021-05-08] MEDS ORDERED: ALBUTEROL NEBULIZED 2.5 MG/3 ML INHALATION PRN (14:05)
[2021-05-08] MEDS: SENNOSIDES-DOCUSATE SODIUM 1 EACH TAB PO SCH (20:30)
[2021-05-08] MEDS ORDERED: METOPROLOL SUCCINATE (ER) 25 MG TAB.ER.24H PO SCH (21:00)
--- NOTE | 2021-05-08 21:14 | P.CONS ---
History of Present Illness - Reason for Consult Consult date: 05/08/21 Medical management - Chief Complaint Right total knee arthroplasty - History of Present Illness Patient is a 66-year-old female with a known history of asthma, hypothyroidism, previous history of smoking, anxiety/depression, mitral valve prolapse and osteoarthritis was admitted to the hospital for right total knee arthroplasty due to severe arthritis. Currently patient is anxious and is also complaining of pain in the right knee. Denied any numbness or tingling sensation in the leg or no calf tenderness. No chest pain or shortness of breath. No headache or dizziness or lightheadedness. No fever no chills. No nausea vomiting abdominal pain or diarrhea. Laboratory data showed WBC 8.2 hemoglobin 9.2 and RDW 17.7 and platelets 204 and coronavirus PCR not detected. Review of Systems Constitutional: Patient denies any fever or chills . No generalized weakness or weight loss. Abdomen: Patient denied nausea vomiting and diarrhea and abdominal pain. Cardiovascular: Patient denies any chest pain or short of breath no palpitations. Respiratory: patient denied any cough or sputum production. No shortness of breath Neurologic: Patient denied any numbness or tingling headache. Musculoskeletal: Patient denies any complaints of joint swelling or deformity. Right knee pain. Skin: Negative Psychiatric: Anxious endocrine: No heat or cold intolerance. No recent weight gain. Genitourinary: No dysuria or hematuria. All other 14 point ROS negative except the above Past Medical History Past Medical History: Asthma, Eye Disorder, GERD/Reflux, Mitral Valve Prolapse (MVP), Osteoarthritis (OA), Thyroid Disorder Additional Past Medical History / Comment(s): "Vertebrae 3 cracked and deformed." Hx of skull fracture as a baby. macular degeneration History of Any Multi-Drug Resistant Organisms: None Reported Past Surgical History: Adenoidectomy, Bladder Surgery, Section, Tonsillectomy Additional Past Surgical History / Comment(s): Section X2, ring finger ganglion cyst removed, fatty tumor removed from breast & abd., Colonoscopy, cervical fusion, bladder suspension Past Anesthesia/Blood Transfusion Reactions: Motion Sickness Past Psychological History: Anxiety, Depression Smoking Status: Former smoker Past Alcohol Use History: Daily Additional Past Alcohol Use History / Comment(s): Smoked in the 1970s. Was having 2 glasses of wine daily, but none currently for a few weeks Past Drug Use History: Marijuana Additional Drug Use History / Comment(s): usually has edible to help sleep, but none in last few weeks - Past Family History Mother Family Medical History: Cancer, Dementia, Deep Vein Thrombosis (DVT) Additional Family Medical History / Comment(s): Breast cancer. Sister(s) Family Medical History: Deep Vein Thrombosis (DVT) Medications and Allergies Home Medications Medication Instructions Recorded Confirmed Type Albuterol Sulfate [Ventolin HFA] 1 - 2 puff INHALATION Q6H PRN 02/19/20 04/29/21 History Ascorbic Acid [Vitamin C] 1,000 mg PO DAILY 02/19/20 04/29/21 History Calcium Carbonate/Vitamin D3 1 each PO HS 02/19/20 04/29/21 History [Caltrate 600 Plus D3 Tablet] Carboxymethylcellulos/Glycerin 1 drop BOTH EYES DAILY 02/19/20 04/29/21 History [Refresh Relieva 0.5-0.9% Drop] Cholecalciferol [Vitamin D3 (25 2,000 unit PO DAILY 02/19/20 04/29/21 History Mcg = 1000 Iu)] Hydrochlorothiazide 12.5 mg PO QAM 02/19/20 04/29/21 History [hydroCHLOROthiazide] Ketotifen Fumarate [Alaway] 1 drop BOTH EYES DIRECTED PRN 02/19/20 04/29/21 History Levothyroxine Sodium 88 mcg PO QAM 02/19/20 04/29/21 History Loratadine-Pseudoeph 10-240 mg 1 tab PO DAILY PRN 02/19/20 04/29/21 History [Claritin-D 24 Hour] Naproxen 500 mg PO BID 02/19/20 04/29/21 History Nasal Gel 1 dose INTRANASAL DAILY PRN 02/19/20 04/29/21 History Omeprazole 20 mg PO QAM 02/19/20 04/29/21 History Vit C/E/Zn/Coppr/Lutein/Zeaxan 2 each PO DAILY 02/19/20 04/29/21 History [Preservision Areds 2 Softgel] Venlafaxine HCl ER [Effexor Xr] 75 mg PO QAM 04/16/20 04/29/21 History Turmeric Root Extract [Turmeric] 500 mg PO DAILY 04/29/21 04/29/21 History Vitamin E 400 unit PO DAILY 04/29/21 04/29/21 History Metoprolol Succinate [Kapspargo 12.5 mg PO HS 04/30/21 05/04/21 History Sprinkle] Aspirin [Adult Low Dose Aspirin EC] 81 mg PO BID #60 tab 05/08/21 Rx Docusate [Colace] 100 mg PO BID #60 capsule 05/08/21 Rx Ondansetron [Zofran] 4 mg PO Q8HR PRN #21 tab 05/08/21 Rx oxyCODONE-APAP 7.5-325MG [Percocet 1 tab PO Q4HR PRN #42 tab 05/08/21 Rx 7.5-325 mg] Allergies Allergy/AdvReac Type Severity Reaction Status Date / Time codeine Allergy Nausea & Verified 05/07/21 07:08 Vomiting Mushroom Allergy Nausea & Verified 05/07/21 07:08 Vomiting shellfish derived [Crab] Allergy Nausea Verified 05/07/21 07:08 nickel AdvReac rash,itchin Verified 05/07/21 07:08 g prednisone AdvReac "Pevely like Verified 05/07/21 07:08 passing out" sulfamethoxazole AdvReac Nausea & Verified 05/07/21 07:09 [From Bactrim] Vomiting trimethoprim [From Bactrim] AdvReac Nausea & Verified 05/07/21 07:09 Vomiting Physical Exam Vitals: Vital Signs Temp Pulse Pulse Resp BP Pulse Ox 05/08/21 07:54 98.2 F 63 18 113/58 98 05/08/21 02:17 97.6 F 66 18 119/48 98 05/07/21 20:00 98.4 F 69 17 125/77 99 05/07/21 16:00 64 80 16 05/07/21 13:45 80 143/81 96 05/07/21 13:30 82 144/83 96 05/07/21 13:15 84 127/74 97 05/07/21 13:00 77 121/69 99 05/07/21 12:45 80 139/84 99 05/07/21 12:30 70 135/70 98 05/07/21 12:15 98.3 F 67 16 132/82 100 Intake and Output 05/07/21 05/08/21 05/08/21 22:59 06:59 14:59 Intake Total 1000 Balance 1000 Intake: Intake, IV Titration 350 Amount Lactated Ringers 1,000 ml 300 @ 100 mls/hr IV .Q10H TOSIN Rx#:[id number] ceFAZolin 2 gm In Sodium 50 Chloride 0.9% 50 ml @ 100 mls/hr IVPB Q8HR TOSIN Rx# :[id number] Oral 650 Other: Voiding Method Bedside Commode # Voids 4 1 PHYSICAL EXAMINATION: Patient is lying in the bed comfortably, no acute distress, awake alert and oriented.. HEENT: Normocephalic. Neck is supple. Pupils reactive. Nostrils clear. Oral cavity is moist. Neck reveals no JVD, carotid bruits, or thyromegaly. CHEST EXAMINATION: Trachea is central. Symmetrical expansion. Lung wynne clear to auscultation and percussion. CARDIAC: Normal S1, S2 with no gallops. No murmurs ABDOMEN: Soft. Bowel sounds normal. No organomegaly. No abdominal bruits. Extremities: reveal no edema. No clubbing or cyanosis Neurologically awake, alert, oriented x3 with well-coordinated movements. No focal deficits noted Skin: No rash or skin lesions. Psychiatric: Cooperative. Nonsuicidal, anxious. Musculoskeletal: No joint swelling or deformity. Right knee surgical site intact. No leg swelling. Results CBC & Chem 7: 05/08/21 05:31 Labs: Abnormal Lab Results - Last 24 Hours (Table) 05/08/21 Range/Units 05:31 RBC 3.74 L (3.80-5.40) m/uL Hgb 9.2 L D (11.4-16.0) gm/dL Hct 31.1 L (34.0-46.0) % MCH 24.7 L (25.0-35.0) pg MCHC 29.6 L (31.0-37.0) g/dL RDW 17.7 H (11.5-15.5) % Assessment and Plan Assessment: Status post right total knee arthroplasty postoperative day 1 Hypertension. Blood pressure is controlled. Osteoarthritis Asthma not in exacerbation Previous history of smoking Mitral valve prolapse GERD Hypothyroidism Anxiety/depression Daily alcohol use and occasional marijuana use DVT prophylaxis. Plan: Patient will be continued on current pain management, bowel regimen. We will hold blood pressure medications at this time. Encourage incentive spirometry. Continue with home medications. DVT prophylaxis as per primary team.. Monitor H&H and follow-up closely. Further recommendations based on the clinical course. Thank you for your consult.
[2021-05-09] MEDS: oxyCODONE-APAP 7.5-325MG 1 EACH TAB PO PRN ×3 (00:20→11:31)
[2021-05-09] MEDS: LACTATED RINGERS 1,000 ML IV SCH (05:33)
[2021-05-09] MEDS ORDERED: LEVOTHYROXINE 88 MCG TAB PO SCH (06:30)
[2021-05-09] MEDS: ASPIRIN 81 MG PO SCH (08:00)
[2021-05-09] MEDS: MULTIVITAMINS, THERA 1 EACH TAB PO SCH (08:01)
[2021-05-09 08:05] VITALS: BP 149/76; PULSE 66; TEMP 98.9
[2021-05-09] MEDS ORDERED: PANTOPRAZOLE 40 MG TABLET PO SCH (09:00)
[2021-05-09] MEDS ORDERED: VENLAFAXINE HCL ER 75 MG CAP PO SCH (09:00)
--- NOTE | 2021-05-09 11:09 | P.DS ---
Providers Date of admission: 05/08/21 17:06 Expected date of discharge: 05/09/21 Attending physician: Lino Harris Consults: 05/07/21 10:13 Consult Physician Routine Consulting Provider: Anais Manuel Consult Reason/Comments: post op medical management Do you want consulting provider notified?: Yes Primary care physician: Diana Sommer - Discharge Diagnosis(es) (1) Osteoarthritis of right knee Current Visit: Yes Status: Acute (2) Right knee pain Current Visit: Yes Status: Acute (3) Hypertension Current Visit: Yes Status: Acute (4) Hypothyroidism Current Visit: Yes Status: Acute (5) History of palpitations Current Visit: Yes Status: Acute (6) Status post total right knee replacement Current Visit: Yes Status: Acute Priority: Medium Hospital Course: This is a pleasant 66-year-old female who presented with right knee osteoarthrosis who failed outpatient conservative therapy. She was admitted for a right total knee arthroplasty. The patient tolerated the procedure well and did well postoperatively. She had some increased pain post operatively which has improved since yesterday. The On-Q pain pump has been discontinued as well and she feels her pain has improved since that time. She has been able to work with physical therapy to increase her mobility and ambulation. She is using a walker to her tolerance. She feels her pain is well-controlled and she is ready for discharge home today. Condition on day of discharge stable. Patient will be discharged home. Patient was cleared preoperatively for surgery by Dr. Sommer. Patient currently denies any nausea, vomiting, fever, or chills. Patient is eating and voiding freely without difficulty. Dressing over the right knee is clean, dry, and intact. We did discuss patient may shower without a dressing intact over the right knee if the surgical site remains clean and dry over the next 72 hours. She may elevate and apply ice for comfort support of the right knee as needed. She is encouraged to use a walker to aid in ambulation as needed. She has a walker at home. She may weight-bear as tolerated on the right lower extremity while avoiding excessive activities with the right lower extremity. Patient will be cleared for discharge from an orthopedic standpoint pending clearance by medicine. MAPS has previously been reviewed. An "Opiod Start Talking" Form has been signed and placed in the patient's chart. A prescription has been written for Percocet 7.5 mg 325 mg, 1 tab every 4 hours as needed for pain, dispense #42. Patient is also given a prescription for aspirin 81 mg, 1 tab twice a day, dispensed #60. She should take this prescription until completion. Patient is given a prescription for Colace 100 mg as needed for constipation and Zofran 4 mg as needed for nausea. She may take these medications as prescribed as needed. Prescriptions have been sent to the [facility] pharmacy located within [facility]. Patient's other medical diagnoses include hypothyroidism, hypertension and history of palpitations. Physical Exam Total Knee Arthroplasty: Status post surgical day number 2 Patient is awake, alert, and oriented 3 Vital signs stable Good chest excursion with deep inspiration and expiration No signs or symptoms of DVT; no calf pain Dressing over the right knee is clean, dry, and intact; no erythema, purulence, or signs of infection No significant pain with palpation about the right knee Patient has full foot and ankle motion without difficulty of the right lower extremity Dorsiflexion, plantar flexion, and extensor hallucis longus positive sustained bilaterally Neurovascular status left lower extremity intact Capillary refill lower extremity is bilaterally less than 2 seconds On-Q pain pump has been discontinued Procedures: Right total knee arthroplasty Patient Condition at Discharge: Stable Plan - Discharge Summary Discharge Rx Participant: Yes New Discharge Prescriptions: New Docusate [Colace] 100 mg PO BID #60 capsule Aspirin [Adult Low Dose Aspirin EC] 81 mg PO BID #60 tab oxyCODONE-APAP 7.5-325MG [Percocet 7.5-325 mg] 1 tab PO Q4HR PRN #42 tab PRN Reason: Pain Ondansetron [Zofran] 4 mg PO Q8HR PRN #21 tab PRN Reason: Nausea No Action Cholecalciferol [Vitamin D3 (25 Mcg = 1000 Iu)] 2,000 unit PO DAILY Ascorbic Acid [Vitamin C] 1,000 mg PO DAILY Loratadine-Pseudoeph 10-240 mg [Claritin-D 24 Hour] 1 tab PO DAILY PRN PRN Reason: seasonal allergies Albuterol Sulfate [Ventolin HFA] 1 - 2 puff INHALATION Q6H PRN PRN Reason: Asthma Vit C/E/Zn/Coppr/Lutein/Zeaxan [Preservision Areds 2 Softgel] 2 each PO DAILY Omeprazole 20 mg PO QAM Nasal Gel 1 dose INTRANASAL DAILY PRN PRN Reason: Dry Nose Naproxen 500 mg PO BID Levothyroxine Sodium 88 mcg PO QAM Hydrochlorothiazide [hydroCHLOROthiazide] 12.5 mg PO QAM Calcium Carbonate/Vitamin D3 [Caltrate 600 Plus D3 Tablet] 1 each PO HS Carboxymethylcellulos/Glycerin [Refresh Relieva 0.5-0.9% Drop] 1 drop BOTH EYES DAILY Ketotifen Fumarate [Alaway] 1 drop BOTH EYES DIRECTED PRN PRN Reason: allergies Venlafaxine HCl ER [Effexor Xr] 75 mg PO QAM Metoprolol Succinate [[place] Sprinkle] 12.5 mg PO HS Vitamin E 400 unit PO DAILY Turmeric Root Extract [Turmeric] 500 mg PO DAILY Discharge Medication List Albuterol Sulfate [Ventolin HFA] 1 - 2 puff INHALATION Q6H PRN 02/19/20 [History] Ascorbic Acid [Vitamin C] 1,000 mg PO DAILY 02/19/20 [History] Calcium Carbonate/Vitamin D3 [Caltrate 600 Plus D3 Tablet] 1 each PO HS 02/19/20 [History] Carboxymethylcellulos/Glycerin [Refresh Relieva 0.5-0.9% Drop] 1 drop BOTH EYES DAILY 02/19/20 [History] Cholecalciferol [Vitamin D3 (25 Mcg = 1000 Iu)] 2,000 unit PO DAILY 02/19/20 [History] Hydrochlorothiazide [hydroCHLOROthiazide] 12.5 mg PO QAM 02/19/20 [History] Ketotifen Fumarate [Alaway] 1 drop BOTH EYES DIRECTED PRN 02/19/20 [History] Levothyroxine Sodium 88 mcg PO QAM 02/19/20 [History] Loratadine-Pseudoeph 10-240 mg [Claritin-D 24 Hour] 1 tab PO DAILY PRN 02/19/20 [History] Naproxen 500 mg PO BID 02/19/20 [History] Nasal Gel 1 dose INTRANASAL DAILY PRN 02/19/20 [History] Omeprazole 20 mg PO QAM 02/19/20 [History] Vit C/E/Zn/Coppr/Lutein/Zeaxan [Preservision Areds 2 Softgel] 2 each PO DAILY 02/19/20 [History] Venlafaxine HCl ER [Effexor Xr] 75 mg PO QAM 04/16/20 [History] Turmeric Root Extract [Turmeric] 500 mg PO DAILY 04/29/21 [History] Vitamin E 400 unit PO DAILY 04/29/21 [History] Metoprolol Succinate [[place] Sprinkle] 12.5 mg PO HS 04/30/21 [History] Aspirin [Adult Low Dose Aspirin EC] 81 mg PO BID #60 tab 05/08/21 [Rx] Docusate [Colace] 100 mg PO BID #60 capsule 05/08/21 [Rx] Ondansetron [Zofran] 4 mg PO Q8HR PRN #21 tab 05/08/21 [Rx] oxyCODONE-APAP 7.5-325MG [Percocet 7.5-325 mg] 1 tab PO Q4HR PRN #42 tab 05/08/21 [Rx] Follow up Appointment(s)/Referral(s): [facility], [NON-STAFF] - As Needed Lino Harris MD [STAFF PHYSICIAN] - 10 Days Activity/Diet/Wound Care/Special Instructions: 1. Patient may shower without a dressing intact over the right knee if the surgical site remains clean and dry over the next 72 hours 2. Patient may elevate and apply ice for comfort support of the right knee as needed 3. Patient is encouraged to use a walker to aid in ambulation as needed; patient has a walker at home 4. Patient may weight-bear as tolerated on the right lower extremity while avoiding excessive activities with the right lower extremity 5. Take medications as prescribed 6. Keep surgical site clean and dry 7. Patient will follow up with Dr. Harris in office; patient may call [facility] at [phone] with any questions or concerns Discharge Disposition: HOME SELF-CARE
== END 2021-05-09 14:29 | disposition home or self-care (01) ==
LOC: OR 06:38 → 4SSUR 10:05 → OR 05-08 13:29 → 4SSUR 05-08 17:06
PROVIDERS: ADMIT Orthopaedic Surgery Sports Medicine; ATTEND Orthopaedic Surgery Sports Medicine
DX: M17.11 Unilateral primary osteoarthritis, right knee (principal); I10 Essential (primary) hypertension; E03.9 Hypothyroidism, unspecified; R00.2 Palpitations; J45.909 Unspecified asthma, uncomplicated; Z87.891 Personal history of nicotine dependence; F41.9 Anxiety disorder, unspecified; F32.A Depression, unspecified; I34.1 Nonrheumatic mitral (valve) prolapse; K21.9 Gastro-esophageal reflux disease without esophagitis; M19.90 Unspecified osteoarthritis, unspecified site; H35.30 Unspecified macular degeneration; Z20.822 Contact with and (suspected) exposure to COVID-19; Z71.9 Counseling, unspecified; Z90.49 Acquired absence of other specified parts of digestive tract; Z98.1 Arthrodesis status; Z79.890 Hormone replacement therapy; Z79.899 Other long term (current) drug therapy; Z79.1 Long term (current) use of non-steroidal anti-inflammatories (NSAID); Z79.82 Long term (current) use of aspirin; Z88.5 Allergy status to narcotic agent; Z91.013 Allergy to seafood; Z88.2 Allergy status to sulfonamides; Z88.8 Allergy status to other drugs, medicaments and biological substances; Z91.018 Allergy to other foods; Z91.048 Other nonmedicinal substance allergy status; Z80.3 Family history of malignant neoplasm of breast; Z81.8 Family history of other mental and behavioral disorders; Z82.49 Family history of ischemic heart disease and other diseases of the circulatory system
CPT/HCPCS: 97116; 97110; 97161; 64999; 64448; 76942; 83540; 83550; 85025; 88300; 87635; 73560; 27447; G0378 ×2; C1776; C1713; J2250; J1100; J0690 ×2; J2405; J3010; J2795 ×2; J2370; J2704; J1170 ×2

== ENCOUNTER 2022-02-13 10:39 | Inpatient (IN) | payer MEDICARE, OTHER ==
--- NOTE | 2022-02-13 12:43 | ED ---
General Adult HPI - General Chief complaint: Extremity Injury, Upper Source: patient, RN notes reviewed - History of Present Illness Initial comments: Patient is a 66 year old female presenting to the ER with a chief complaint of worsening right 2nd finger pain. She states she was diagnosed with a mucocutaneous cyst last week which now is infected. She came to the ER last , 02/11/22, due to pain a swelling. She was prescribed motrin 800 and cli ndamycin and sent home for outpatient treatment with ortho. She has an appointment with Dr. De León on 02/17/22. She reports since her finger was tripled in size and the erythema was moved more proximal now involving the PIP joint. She admits to pain with motion. Denies recent fevers, chills or parenthesis. - Related Data Home Medications Medication Instructions Recorded Confirmed Albuterol Sulfate [Ventolin HFA] 1 - 2 puff INHALATION Q6H PRN 02/19/20 04/29/21 Ascorbic Acid [Vitamin C] 1,000 mg PO DAILY 02/19/20 04/29/21 Calcium Carbonate/Vitamin D3 1 each PO HS 02/19/20 04/29/21 [Caltrate 600 Plus D3 20 Mcg (800 Iu)] Carboxymethylcellulos/Glycerin 1 drop BOTH EYES DAILY 02/19/20 04/29/21 [Refresh Relieva 0.5-0.9% Drop] Cholecalciferol [Vitamin D3 (25 2,000 unit PO DAILY 02/19/20 04/29/21 Mcg = 1000 Iu)] Ketotifen Fumarate [Alaway] 1 drop BOTH EYES DIRECTED PRN 02/19/20 04/29/21 Levothyroxine Sodium 88 mcg PO QAM 02/19/20 04/29/21 Loratadine-Pseudoeph 10-240 mg 1 tab PO DAILY PRN 02/19/20 04/29/21 [Claritin-D 24 Hour] Naproxen 500 mg PO BID 02/19/20 04/29/21 Nasal Gel 1 dose INTRANASAL DAILY PRN 02/19/20 04/29/21 Omeprazole 20 mg PO QAM 02/19/20 04/29/21 Vit C/E/Zn/Coppr/Lutein/Zeaxan 2 each PO DAILY 02/19/20 04/29/21 [Preservision Areds 2 Softgel] hydroCHLOROthiazide 12.5 mg PO QAM 02/19/20 04/29/21 Venlafaxine HCl ER [Effexor XR] 75 mg PO QAM 04/16/20 04/29/21 Turmeric Root Extract [Turmeric] 500 mg PO DAILY 04/29/21 04/29/21 Vitamin E 400 unit PO DAILY 04/29/21 04/29/21 Metoprolol Succinate [[place]sp[place] 12.5 mg PO HS 04/30/21 05/04/21 Sprinkle] Previous Rx's Medication Instructions Recorded Aspirin [Adult Low Dose Aspirin EC] 81 mg PO BID #60 tab 05/08/21 Docusate [Colace] 100 mg PO BID #60 capsule 05/08/21 Ondansetron [Zofran] 4 mg PO Q8HR PRN #21 tab 05/08/21 oxyCODONE-APAP 7.5-325MG [Percocet 1 tab PO Q4HR PRN #42 tab 05/08/21 7.5-325 mg] Clindamycin [Cleocin] 450 mg PO Q8H 7 Days #63 cap 02/11/22 Ibuprofen [Motrin] 800 mg PO Q6HR PRN #30 tab 02/11/22 Allergies Allergy/AdvReac Type Severity Reaction Status Date / Time codeine Allergy Nausea & Verified 02/11/22 14:06 Vomiting Mushroom Allergy Nausea & Verified 02/11/22 14:06 Vomiting shellfish derived [Crab] Allergy Nausea Verified 02/11/22 14:06 nickel AdvReac rash,itchin Verified 02/11/22 14:06 g prednisone AdvReac "[place] like Verified 02/11/22 14:06 passing out" sulfamethoxazole AdvReac Nausea & Verified 02/11/22 14:06 [From Bactrim] Vomiting trimethoprim [From Bactrim] AdvReac Nausea & Verified 02/11/22 14:06 Vomiting Review of Systems ROS Statement: Those systems with pertinent positive or pertinent negative responses have been documented in the HPI. ROS Other: All systems not noted in ROS Statement are negative. Past Medical History Past Medical History: Asthma, Eye Disorder, GERD/Reflux, Mitral Valve Prolapse (MVP), Osteoarthritis (OA), Thyroid Disorder Additional Past Medical History / Comment(s): "Vertebrae 3 cracked and deformed." Hx of skull fracture as a baby. macular degeneration History of Any Multi-Drug Resistant Organisms: None Reported Past Surgical History: Adenoidectomy, Bladder Surgery, Section, Joint Replacement, Tonsillectomy Additional Past Surgical History / Comment(s): Section X2, ring finger ganglion cyst removed, fatty tumor removed from breast & abd., Colonoscopy, cervical fusion, bladder suspension, right knee replacement Past Anesthesia/Blood Transfusion Reactions: Motion Sickness Past Psychological History: Anxiety, Depression Smoking Status: Former smoker Past Alcohol Use History: Daily Past Drug Use History: Marijuana - Past Family History Mother Family Medical History: Cancer, Dementia, Deep Vein Thrombosis (DVT) Additional Family Medical History / Comment(s): Breast cancer. Sister(s) Family Medical History: Deep Vein Thrombosis (DVT) General Exam Head exam: Present: atraumatic, normocephalic, normal inspection Eye exam: Present: normal appearance, PERRL, EOMI. Absent: scleral icterus, conjunctival injection, periorbital swelling ENT exam: Present: normal exam, mucous membranes moist Neck exam: Present: normal inspection. Absent: tenderness, meningismus, lymphadenopathy Respiratory exam: Present: normal lung sounds bilaterally. Absent: respiratory distress, wheezes, rales, rhonchi, stridor Cardiovascular Exam: Present: regular rate, normal rhythm, normal heart sounds, other (2+ radial pulse ). Absent: systolic murmur, diastolic murmur, rubs, gallop, clicks Extremities exam: Present: full ROM (decreased ROM right 2nd finger; unable to flex digit ), tenderness (to palpitation DIP and PIP joints ), joint swelling (right 2nd digit DIP and PIP edema ) Back exam: Present: normal inspection Neurological exam: Present: alert, oriented X3, CN II-XII intact Psychiatric exam: Present: normal affect, normal mood Skin exam: Present: erythema (right 2nd finger involving DIP and PIP joints ) Medical Decision Making - Medical Decision Making I did discuss case with Dr. Cooper on-call orthopedics recommends patient be admitted for IV antibiotics, further evaluation for possible I&D. Disposition Clinical Impression: Cellulitis of finger of right hand, Failure of outpatient treatment Disposition: ADMITTED IP TO THIS [facility] Condition: Poor Referrals: Diana Sommer MD [Primary Care Provider] - 1-2 days Time of Disposition: 12:54
[2022-02-13] MEDS ORDERED: VANCOMYCIN IV PER PHARMACY 1 EACH MISC MISCELLANE PRN (12:48)
[2022-02-13] MEDS ORDERED: VANCOMYCIN 1,250 MG in SODIUM CHLORIDE 0.9% 250 ML IVPB STA (12:53)
[2022-02-13] MEDS ORDERED: NALOXONE 0.4 MG/ML 1 ML VIAL IV PRN (12:55)
[2022-02-13] MEDS ORDERED: ONDANSETRON 4 MG/2 ML VIAL IVP PRN (12:55)
[2022-02-13] MEDS ORDERED: KETOROLAC 15 MG/ML 1 ML VIAL IVP STA (12:57)
[2022-02-13] MEDS ORDERED: KETOROLAC 15 MG/ML 1 ML VIAL IVP PRN (14:09)
[2022-02-13] MEDS: HYDROcodone/APAP 5-325MG 1 EACH TAB PO PRN ×2 (15:14→18:29)
[2022-02-13] MEDS ORDERED: LIDOCAINE 1% INJ 10MG/ML (30 ML VIAL-PF) SQ ONE (16:00)
--- NOTE | 2022-02-13 17:34 | P.HPOR ---
History of Present Illness H&P Date: 02/13/22 Chief Complaint: anger swelling and pain with infection patient is seen and examined at bedside. She is a pleasant 66-year-old female who is known to our service. Apparently patient has been having swelling at her left index finger over the past several days. She had contacted our office and was scheduled see us next week however had worsening of her finger presented to the emergency room on February 11. She is found have significant swelling around her left index finger nailbed distal to her DIP joint her slowly. In the emergency room on the there apparently did a small diana and drainage and culture. The patient says that they got some blood but did not notice any obvious pus. She was sent home with oral antibiotics which she has been taking regularly. She's been taking oral clindamycin however she says she has been having worse mau over the past few days and today presented again to the emergency room with increased swelling at her distal right index finger with some further swelling toward her middle phalanx. She denies any fevers or chills. She denies any specific injury. She denies any nausea. She says she has been taking her oral antibiotics regularly. her culture results from February 11 showed positive beta hemolytic strep group G. She has had worsening in her finger despite oral antibiotics and presented to the emergency room where she was evaluated and we felt that she could do better with IV antibiotics and possible repeat I&D with possibility of formal irrigation and debridement. Patient denies any injury to herFinger. She is right-hand dominant. She denies any cuts or scrapes that she knows of. She denies any instance in her hand or fingers. She says the pain is been present at her finger and is like and has been getting worse over the past couple days despite her antibiotics orally. Review of Systems As per HPI. She denies any neck pain or shoulder pain. She has a history of anterior cervical decompression and fusion. She denies any sweats fevers or chills. She denies any streaking and her arm. She denies any pain in her elbow. She denies any abdominal pain nausea or vomiting. Past Medical History Past Medical History: Asthma, Eye Disorder, GERD/Reflux, Hypertension, Mitral Valve Prolapse (MVP), Osteoarthritis (OA), Thyroid Disorder Additional Past Medical History / Comment(s): #3 vertebrae was cracked and deformed." Hx of skull fracture as a baby. macular degeneration, takes hydrochlorathiazide for "a small amount of fluuid buildup around the heart.". history of anterior cervical decompression and fusion for cervical stenosis and herniated disc History of Any Multi-Drug Resistant Organisms: None Reported Past Surgical History: Adenoidectomy, Bladder Surgery, Section, Joint Replacement, Tonsillectomy Additional Past Surgical History / Comment(s): Section X2, ring finger ganglion cyst removed, fatty tumor removed from breast & abd., Colonoscopy, cervical fusion, bladder suspension, right knee replacement Past Anesthesia/Blood Transfusion Reactions: Motion Sickness Past Psychological History: Anxiety, Depression Smoking Status: Former smoker Past Alcohol Use History: Daily Additional Past Alcohol Use History / Comment(s): Smoked in the s. Past Drug Use History: Marijuana Additional Drug Use History / Comment(s): past history of medical marijuana - Past Family History Mother Family Medical History: Cancer, Dementia, Deep Vein Thrombosis (DVT) Additional Family Medical History / Comment(s): Breast cancer. Sister(s) Family Medical History: Deep Vein Thrombosis (DVT) Medications and Allergies Home Medications Medication Instructions Recorded Confirmed Type Ascorbic Acid [Vitamin C] 500 mg PO HS 02/19/20 02/13/22 History Calcium Carbonate/Vitamin D3 1 tab PO HS 02/19/20 02/13/22 History [Caltrate 600 Plus D3 20 Mcg (800 Iu)] Levothyroxine Sodium 88 mcg PO DAILY 02/19/20 02/13/22 History Naproxen 500 mg PO BID 02/19/20 02/13/22 History Omeprazole 20 mg PO DAILY 02/19/20 02/13/22 History Vit C/E/Zn/Coppr/Lutein/Zeaxan 1 cap PO BID 02/19/20 02/13/22 History [Preservision Areds 2 Softgel] hydroCHLOROthiazide 12.5 mg PO DAILY 02/19/20 02/13/22 History Venlafaxine HCl ER [Effexor XR] 75 mg PO DAILY 04/16/20 02/13/22 History Cholecalciferol [Vitamin D3 (25 25 mcg PO HS 02/13/22 02/13/22 History Mcg = 1000 Iu)] amLODIPine [Norvasc] 5 mg PO HS 02/13/22 02/13/22 History Allergies Allergy/AdvReac Type Severity Reaction Status Date / Time codeine Allergy Nausea & Verified 02/13/22 14:42 Vomiting Mushroom Allergy Nausea & Verified 02/13/22 14:42 Vomiting shellfish derived [Crab] Allergy Nausea Verified 02/13/22 14:42 nickel AdvReac rash,itchin Verified 02/13/22 14:42 g prednisone AdvReac "[place] like Verified 02/13/22 14:42 passing out" sulfamethoxazole AdvReac Nausea & Verified 02/13/22 14:42 [From Bactrim] Vomiting trimethoprim [From Bactrim] AdvReac Nausea & Verified 02/13/22 14:42 Vomiting Physical Examination Osteopathic Statement: *. No significant issues noted on an osteopathic structural exam other than those noted in the History and Physical/Consult. - Wrist & Hand right Location of pain: index finger (right index finger has some diffuse swelling. There is mild erythema. There is tenderness to palpation over the distal phalanx. It seems to be most swollen dorsally at the distal phalanx just proximal to the nailbed. There is small area that is apparently with some fluid underneath it. There is) Wrist pain modifiers: with motion (there is a small incision site where they did the Sujey drainage just proximal to her nail bed on the radial side of the index finger which appears to be closed. It is approximately 3 millimeters in length. She does not have pain over her proximal phalanx or her PIP joint. She has some pain wit) Index finger pain modifiers: with motion (she does feel somewhat tight at her DIP joint with passive stretch but she does have some active and passive range of motion pleasant her elbows nontender. There seems to be fluid under pressure proximal to her nail bed of her index finger), other (there is no pain at her PIP joint of her index finger there is pain with motion at her DIP joint. She has tenderness diffusely around her distal phalanx plate. There is no pain in her palm. There is no streaking. There is no signal him pain with passive stretch though she is feeling tight at her) Results cultures from February 11 show beta hemolytic strep group G from her finger incision Assessment and Plan Assessment: local infection at the distal phalanx of the right index finger nonresponsive to oral antibiotics Right index finger pain with swelling without evidence of flexor tendon involvement Plan: local infection at the distal phalanx of the right index finger nonresponsive to oral antibiotics Right index finger pain with swelling without evidence of flexor tendon involvement The patient has had worsening of her infectious process despite her I&D in the emergency room and oral antibiotics. The infection seems to be coming to a head just proximal to her nail bed and there appears to be some fluid under pressure. It is possible that they did not do complete drainage of the area and she may do well with a repeat I&D here at Bedside. She may be having some benefit with the IV antibiotic and I think that she could have further benefitwith further release of the fluid under pressure at the dorsal aspect of her distal phalanx. I discussed this with her at length. I discussed the risks and alternatives and possibilities and a possibly of need for formal irrigation and debridement. I think that we can perform a digital block. Bedside and have her undergo a bedside irrigation and debridement of the left index. Distal phalanx. I answered all her questions and she is agreeable to proceed. Procedure note After discussing the case with her and the issues involved with her finger, I felt that she could do well with a bedside irrigation and debridement under digital block. After she signed informed consent the base of the index finger volarly was scrubbed and I performed a digital block with plain lidocaine appropriately. Patient tolerated that well. Once the anesthesia took effect and her finger was numb I did a wide scrub of her index finger and prepped and draped appropriately. With this accomplished I made a small incision at the radial aspect of the base of her nail bed proximally. I was able to dissect deeply with a hemostat and scissors to get into the deep space down to the posterior surface of the distal phalanx. I did not notice any obvious pus. Some bleeding at the area. Does not gross pus. I dissected further dorsally along the disc phalanx and then a volarly toward the pulp. I do not find any specific pocket of pus. The wound was irrigated and dried. I took a deep culture of the area. I decided to leave the incision to allow to drain. I put gentle pressure and bleeding was stopped with good hemostasis. I placed nonadherent dressing and antibiotic ointment bulky dressing over her finger. The patient tolerated the procedure well. We will continue to monitor her closely forResponse with the MRI status post irrigation debridement. If she is making good progress we could hopefully convert her or her again to oral medications and continued local wound care. However if she is having worsening we could consider formal open irrigation and debridement. I discussed this with her answered her questions and she is agreeable. We will follow her closely here in Hospital. Time with Patient: Greater than 30 (for history physical and procedure with irrigation and debridement)
[2022-02-13 19:40] LABS: Anisocytosis Slight; Basophils # (A) 0.1 k/uL (0-0.2); Basophils % (A) 1 %; Eosinophils # (A) 0.1 k/uL (0-0.7); Eosinophils % (A) 2 %; HCT 37.9 % (34.0-46.0); HGB 11.4 gm/dL (11.4-16.0); Hypochromasia Marked; Lymphocytes # (A) 1.3 k/uL (1.0-4.8); Lymphocytes % (A) 15 %; MCH 24.6 pg (25.0-35.0); MCHC 30.2 g/dL (31.0-37.0); MCV 81.7 fL (80.0-100.0); Monocytes # (A) 0.6 k/uL (0-1.0); Monocytes % (A) 7 %; Neutrophils # (A) 6.5 k/uL (1.3-7.7); Neutrophils % (A) 75 %; Platelet Count 298 k/uL (150-450); RBC 4.64 m/uL (3.80-5.40); RDW 16.7 % (11.5-15.5); WBC 8.7 k/uL (3.8-10.6)
--- NOTE | 2022-02-13 19:46 | XR ---
EXAMINATION TYPE: XR finger RT DATE OF EXAM: 02/13/2022 6:24 PM INDICATION: Patient age:Female; 66 years old; Reason for study: Right index finger for swelling and infection; PHH. COMPARISON: No relevant priors TECHNIQUE: Frontal, lateral and oblique views of the right hand with attention to the second digit we re obtained. FINDINGS: No evidence for fracture or radiopaque foreign body. Superficial cutaneous defect is seen o n the dorsal aspect of the distal second digit. No radiopaque foreign bodies. Degenerative changes ar e present in the visualized distal and proximal interphalangeal joints. No aggressive osseous lesions . Diffuse soft tissue swelling of the second digit. IMPRESSION: 1. Cutaneous defect along the dorsal aspect of the second digit without acute osseous changes identif ied. 2. Diffuse soft tissue swelling of the second digit. 3. No radiopaque foreign bodies.
[2022-02-13 19:49] LABS: ALT 23 U/L (4-34); AST 28 U/L (14-36); African American GFR (CKD) >90 (>60 ml/min/1.73 sqM); Albumin 4.1 g/dL (3.5-5.0); Alkaline Phosphatase 131 U/L (38-126); Anion Gap 7 mmol/L; Blood Urea Nitrogen 11 mg/dL (7-17); Calcium 9.3 mg/dL (8.4-10.2); Carbon Dioxide 28 mmol/L (22-30); Chloride 103 mmol/L (98-107); Glucose 93 mg/dL (74-99); Non-African American GFR(CKD) >90 (>60 ml/min/1.73 sqM); Potassium 3.7 mmol/L (3.5-5.1); Sodium 138 mmol/L (137-145); Total Bilirubin 0.5 mg/dL (0.2-1.3); Total Protein 6.5 g/dL (6.3-8.2)
[2022-02-13] MEDS: CHOLECALCIFEROL 25 MCG (1000 IU) TABLET PO SCH (20:46)
[2022-02-13] MEDS: CALCIUM CARB-VIT D 500 MG-5 MCG TAB PO SCH (20:46)
[2022-02-13] MEDS: amLODIPine 5 MG TAB PO SCH (20:46)
[2022-02-13] MEDS: ASCORBIC ACID 500 MG TAB PO SCH (20:46)
[2022-02-13] MEDS ORDERED: NON FORMULARY DRUG (Vit C/E/Zn/Coppr/Lutein/Zeaxan [Preservision Areds 2 Softgel] 1 EACH C PO SCH (21:00)
[2022-02-13 21:48] LABS: C Reactive Protein 6.8 mg/dL (<1.0)
[2022-02-13] MEDS: VANCOMYCIN 1,250 MG in SODIUM CHLORIDE 0.9% 250 ML IVPB SCH (23:06)
[2022-02-14] MEDS: HYDROcodone/APAP 5-325MG 1 EACH TAB PO PRN ×4 (04:51→18:43)
[2022-02-14] MEDS: LEVOTHYROXINE 88 MCG TAB PO SCH (05:55)
[2022-02-14] MEDS: PANTOPRAZOLE 40 MG TABLET PO SCH (08:18)
[2022-02-14] MEDS: hydroCHLOROthiazide 12.5 MG CAP PO SCH (08:18)
[2022-02-14] MEDS: VENLAFAXINE HCL ER 75 MG CAP PO SCH (08:18)
--- NOTE | 2022-02-14 08:46 | P.PN ---
Progress Note - Text Progress Note Date: 02/14/22 Patient is seen and examined today at bedside. The patient has some pain around the irrigation and debridement site at her left index finger as expected. Pain is being controlled with medication. Overall she says she is feeling somewhat better. She says it is less tender. She denies any fevers or chills. Physical Exam Afebrile with stable vital signs Abdomen is soft nontender. Chest has good excursion deep and space expiration On exam at her left index finger. There is no active bleeding. There is no purulence. She still has significant erythema centered around her DIP joint at her distal index finger. Compartments are soft with some mild tenderness she is not tender over the palm of her hand or over her flexor tendon sheath. She has somewhat better motion at her DIP and PIP joints. There is less swelling in her proximal finger and her hand. The incision site is clean dry and intact. no purulence. Extremities have not had neurologic change . Calves and thighs were soft nontender without evidence of DVT. Assessment/Plan Right index finger infection is likely infected mucoid cyst status post irrigation and excisional debridement yesterday Some gradual improvement in the appearance of the finger and with her pain and swelling Patient is progressing with the IV antibiotics and the I&D. New cultures are pending. Her initial culture from showed beta hemolytic strep group G. She is currently on IV antibiotics and we will continue that for another evening. Will have infectious disease see her for the possibility of alternative medication or possibly orals as she has a number of different ALLERGIES and failed clindamycin patient last week. We will continue pain control with oral or IV medications. We'll continue to follow patient closely.
[2022-02-14 09:21] LABS: African American GFR (CKD) 104.7 (60.0-200.0); Anion Gap 10.2 mmol/L (10.00-18.00); BUN/Creat Ratio 17.6 Ratio (12.00-20.00); Blood Urea Nitrogen 12.3 mg/dL (9.0-27.0); Calcium 9.2 mg/dL (8.7-10.3); Carbon Dioxide 26.3 mmol/L (20.0-27.5); Non-African American GFR(CKD) 90.3 (60.0-200.0)
[2022-02-14] MEDS: VANCOMYCIN 1,250 MG in SODIUM CHLORIDE 0.9% 250 ML IVPB SCH (16:11)
[2022-02-14] MEDS: CALCIUM CARB-VIT D 500 MG-5 MCG TAB PO SCH (21:46)
[2022-02-14] MEDS: ASCORBIC ACID 500 MG TAB PO SCH (21:46)
[2022-02-14] MEDS: amLODIPine 5 MG TAB PO SCH (21:46)
[2022-02-14] MEDS: CHOLECALCIFEROL 25 MCG (1000 IU) TABLET PO SCH (21:46)
[2022-02-15] MEDS: HYDROcodone/APAP 5-325MG 1 EACH TAB PO PRN ×3 (00:14→10:26)
[2022-02-15] MEDS: LEVOTHYROXINE 88 MCG TAB PO SCH (06:44)
[2022-02-15] MEDS: VENLAFAXINE HCL ER 75 MG CAP PO SCH (07:58)
[2022-02-15] MEDS: PANTOPRAZOLE 40 MG TABLET PO SCH (07:58)
[2022-02-15] MEDS: hydroCHLOROthiazide 12.5 MG CAP PO SCH (07:58)
--- NOTE | 2022-02-15 08:04 | P.CONS ---
History of Present Illness - Reason for Consult Consult date: 02/14/22 - History of Present Illness Patient is a 66-year-old female with a past medical history significant for recurrent mucoid cyst started having a problem with the left index finger on the last week or so patient denies any history of any trauma patient mention developing swelling and redness distal redness of the left index finger and the nailbed that has becoming more swollen red and painful patient describing the pain to be more of a throbbing to dull aching 6-7 out of 10 and radiation patient was evaluated by ER physician on her February 11 with attempt of I&D but there was no purulent drainage culture were obtained which notion beta-hemolytic strep group G patient was treated with oral clindamycin did not have any improvement subsequently presented back to the hospital patient did have a x-ray of the finger which shows cutaneous defect along the dorsal aspect of the second digit without acute bony abnormality and diffuse soft tissue swelling patient was evaluated by orthopedics and did have bedside I&D under digital block and repeat cultures were obtained patient currently on vancomycin infectious disease was consulted for further management of antibiotic therapy Past Medical History Past Medical History: Asthma, Eye Disorder, GERD/Reflux, Hypertension, Mitral Valve Prolapse (MVP), Osteoarthritis (OA), Thyroid Disorder Additional Past Medical History / Comment(s): #3 vertebrae was cracked and deformed." Hx of skull fracture as a baby. macular degeneration, takes hydrochlorathiazide for "a small amount of fluuid buildup around the heart.". history of anterior cervical decompression and fusion for cervical stenosis and herniated disc History of Any Multi-Drug Resistant Organisms: None Reported Past Surgical History: Adenoidectomy, Bladder Surgery, Section, Joint Replacement, Tonsillectomy Additional Past Surgical History / Comment(s): Section X2, ring finger ganglion cyst removed, fatty tumor removed from breast & abd., Colonoscopy, cervical fusion, bladder suspension, right knee replacement Past Anesthesia/Blood Transfusion Reactions: Motion Sickness Past Psychological History: Anxiety, Depression Smoking Status: Former smoker Past Alcohol Use History: Daily Additional Past Alcohol Use History / Comment(s): Smoked in the 1970's. Past Drug Use History: Marijuana Additional Drug Use History / Comment(s): past history of medical marijuana - Past Family History Mother Family Medical History: Cancer, Dementia, Deep Vein Thrombosis (DVT) Additional Family Medical History / Comment(s): Breast cancer. Sister(s) Family Medical History: Deep Vein Thrombosis (DVT) Medications and Allergies Home Medications Medication Instructions Recorded Confirmed Type Ascorbic Acid [Vitamin C] 500 mg PO HS 02/19/20 02/13/22 History Calcium Carbonate/Vitamin D3 1 tab PO HS 02/19/20 02/13/22 History [Caltrate 600 Plus D3 20 Mcg (800 Iu)] Levothyroxine Sodium 88 mcg PO DAILY 02/19/20 02/13/22 History Naproxen 500 mg PO BID 02/19/20 02/13/22 History Omeprazole 20 mg PO DAILY 02/19/20 02/13/22 History Vit C/E/Zn/Coppr/Lutein/Zeaxan 1 cap PO BID 02/19/20 02/13/22 History [Preservision Areds 2 Softgel] hydroCHLOROthiazide 12.5 mg PO DAILY 02/19/20 02/13/22 History Venlafaxine HCl ER [Effexor XR] 75 mg PO DAILY 04/16/20 02/13/22 History Cholecalciferol [Vitamin D3 (25 25 mcg PO HS 02/13/22 02/13/22 History Mcg = 1000 Iu)] amLODIPine [Norvasc] 5 mg PO HS 02/13/22 02/13/22 History Allergies Allergy/AdvReac Type Severity Reaction Status Date / Time codeine Allergy Nausea & Verified 02/13/22 14:42 Vomiting Mushroom Allergy Nausea & Verified 02/13/22 14:42 Vomiting shellfish derived [Crab] Allergy Nausea Verified 02/13/22 14:42 nickel AdvReac rash,itchin Verified 02/13/22 14:42 g prednisone AdvReac "Bradley like Verified 02/13/22 14:42 passing out" sulfamethoxazole AdvReac Nausea & Verified 02/13/22 14:42 [From Bactrim] Vomiting trimethoprim [From Bactrim] AdvReac Nausea & Verified 02/13/22 14:42 Vomiting Physical Exam Vitals: Vital Signs Temp Pulse Resp BP Pulse Ox 02/14/22 14:00 98.1 F 62 18 115/71 95 02/14/22 08:00 98.5 F 65 17 146/84 96 02/14/22 01:35 EDT 97.8 F 106 H 18 118/74 92 L 02/13/22 20:00 66 18 02/13/22 19:49 99.2 F 66 18 116/73 Results CBC & Chem 7: 02/13/22 13:00 02/14/22 05:52 Labs: Abnormal Lab Results - Last 24 Hours (Table) 02/13/22 02/13/22 02/13/22 Range/Units 13:00 13:00 13:00 MCH 24.6 L (25.0-35.0) pg MCHC 30.2 L (31.0-37.0) g/dL RDW 16.7 H (11.5-15.5) % Plasma Lactic Acid Pedro Luis 3.5 H* (0.7-2.0) mmol/L Alkaline Phosphatase 131 H (38-126) U/L C-Reactive Protein 6.8 H (<1.0) mg/dL Microbiology - Last 24 Hours (Table) 02/13/22 17:05 Wound Culture - Preliminary Finger - Right First 02/13/22 17:05 Anaerobic Culture - Preliminary Finger - Right First Assessment and Plan Plan: 1patient with left second digit distal phalanx infection small abscess s/p initial drainage by the ER physician on February 11 which is going beta-hemolytic strep group G and did have a bedside I&D by orthopedics on 02/13/2022 failing outpatient oral clindamycin therapy. 2discontinue vancomycin. 3we will start the patient on cefazolin 2 g every 8 hours. We will follow on clinical condition and cultures to further adjust medication if needed Thank you for this consultation will follow this patient along with you Time with Patient: Greater than 30
--- NOTE | 2022-02-15 10:24 | P.PN ---
Progress Note - Text Progress Note Date: 02/15/22 The patient is seen and examined at bedside. She says that overall she is feeling well. She says her hand is less painful. She was seen by Dr. Altamirano with infectious disease as well. On exam. Is afebrile with stable vital signs At her right index finger the dressing is taken down. His no drainage there is no purulence. There is still significant redness around her DIP out to her distal pulp and tip of her finger. She has some better motion at her IP joint and PIP and DIP joint. 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 She had failed oral clindamycin at home. She had been started on vancomycin in the emergency room and that has been switched to cefazolin as per infectious disease. I discussed case with Dr. De León our hand specialist and she will evaluate the fingers well. The patient is making some progress with antibiotics but may need further intervention. She'll have further evaluation later today and they will make further determinations on whether to continue with conservative treatment at this point with sustained antibiotics versus possibly of an box with repeat irrigation and debridement. I discussed this with the patient and she understands. we will keep the patient nothing by mouth for now in case they decide to pursue further interventional care
[2022-02-15] MEDS ORDERED: DEXAMETHASONE SOD PHOSPHATE 10 MG/ML 1 ML VIAL IVP STA (12:46)
--- NOTE | 2022-02-15 14:24 | P.PN ---
Progress Note - Text Progress Note Date: 02/15/22 The patient was seen and examined with Dr. De León this afternoon. The finger appears to be improving after the bedside I&D and IV antibiotics. We will hold off on a formal I&D at this time. She may resume a regular diet. She is ok to discharge home tomorrow when Dr. Altamirano decides on oral antibiotics. She will be given one dose of Decadron 10 mg to help with swelling. Continue to ice and elevate finger. The patient will follow up with Dr. De León in 1 week.
[2022-02-15] MEDS: IBUPROFEN 600 MG TAB PO PRN (18:33)
[2022-02-15] MEDS: amLODIPine 5 MG TAB PO SCH (21:04)
[2022-02-15] MEDS: CALCIUM CARB-VIT D 500 MG-5 MCG TAB PO SCH (21:04)
[2022-02-15] MEDS: CHOLECALCIFEROL 25 MCG (1000 IU) TABLET PO SCH (21:04)
[2022-02-15] MEDS: ASCORBIC ACID 500 MG TAB PO SCH (21:09)
[2022-02-16 02:37] VITALS: RESP 16
[2022-02-16 08:08] VITALS: BP 128/57; PULSE 65; TEMP 97.9
--- NOTE | 2022-02-16 09:50 | P.DS ---
Providers Date of admission: 02/13/22 13:33 Expected date of discharge: 02/16/22 Attending physician: Anita Ulloa Consults: 02/14/22 08:41 Consult Physician Routine Consulting Provider: Janet Altamirano Consult Reason/Comments: Right index finger infected mucoid cyst Do you want consulting provider notified?: Yes Primary care physician: Diana Sommer - Discharge Diagnosis(es) (1) Cellulitis of finger of right hand Status: Acute (2) Failure of outpatient treatment Status: Acute Hospital Course: She is a pleasant 66-year-old female who is known to our service. The patient was experiencing swelling at her left index finger over the past several days before presenting to the ER at [facility]. She had contacted our office and was scheduled see us the next week, however, she had worsening of her finger presented to the emergency room on February 11. She is found have significant swelling around her left index finger nailbed distal to her DIP joint. In the emergency room on02/11/2022, they apparently did a small diana and drainage and culture. The patient says that they got some blood but did not notice any obvious pus. She was sent home with oral antibiotics which she has been taking regularly. She's been taking oral clindamycin however she says she has been having worsening over the past few days and today presented again to the emergency room with increased swelling at her distal right index finger with some further swelling toward her middle phalanx. She underwent a bedside I&D by Dr. Ulloa on February 13. The patient continued to improve on IV antibiotics. No formal I&D was needed. The patient will discharge home today with oral antibiotics per infectious disease. She will follow up in our office early next week. Pertinent Studies: Laboratory Tests 02/13/22 02/13/22 13:00 13:00 WBC 8.7 C-Reactive Protein 6.8 H Patient Condition at Discharge: Poor Plan - Discharge Summary Discharge Rx Participant: No New Discharge Prescriptions: New Cephalexin [Keflex] 500 mg PO Q6HR 10 Days #40 cap No Action Ascorbic Acid [Vitamin C] 500 mg PO HS Vit C/E/Zn/Coppr/Lutein/Zeaxan [Preservision Areds 2 Softgel] 1 cap PO BID Omeprazole 20 mg PO DAILY Naproxen 500 mg PO BID Levothyroxine Sodium 88 mcg PO DAILY hydroCHLOROthiazide 12.5 mg PO DAILY Calcium Carbonate/Vitamin D3 [Caltrate 600 Plus D3 20 Mcg (800 Iu)] 1 tab PO HS Venlafaxine HCl ER [Effexor XR] 75 mg PO DAILY Cholecalciferol [Vitamin D3 (25 Mcg = 1000 Iu)] 25 mcg PO HS amLODIPine [Norvasc] 5 mg PO HS Discharge Medication List Ascorbic Acid [Vitamin C] 500 mg PO HS 02/19/20 [History] Calcium Carbonate/Vitamin D3 [Caltrate 600 Plus D3 20 Mcg (800 Iu)] 1 tab PO HS 02/19/20 [History] Levothyroxine Sodium 88 mcg PO DAILY 02/19/20 [History] Naproxen 500 mg PO BID 02/19/20 [History] Omeprazole 20 mg PO DAILY 02/19/20 [History] Vit C/E/Zn/Coppr/Lutein/Zeaxan [Preservision Areds 2 Softgel] 1 cap PO BID 02/19/20 [History] hydroCHLOROthiazide 12.5 mg PO DAILY 02/19/20 [History] Venlafaxine HCl ER [Effexor XR] 75 mg PO DAILY 04/16/20 [History] Cholecalciferol [Vitamin D3 (25 Mcg = 1000 Iu)] 25 mcg PO HS 02/13/22 [History] amLODIPine [Norvasc] 5 mg PO HS 02/13/22 [History] Cephalexin [Keflex] 500 mg PO Q6HR 10 Days #40 cap 02/16/22 [Rx] Follow up Appointment(s)/Referral(s): Emily De León DO [Doctor of Osteopathic Medicine] - 02/22/22 9:20 am Diana Sommer MD [Primary Care Provider] - 02/18/22 2:20 pm Janet Altamirano MD [STAFF PHYSICIAN] - 03/02/22 2:45 pm Patient Instructions/Handouts: Incision and Drainage (DC) Activity/Diet/Wound Care/Special Instructions: Elevate hand above heart. May cleanse the finger with soap and water Apply bandaid if needed. Discharge Disposition: HOME SELF-CARE
[2022-02-16] MEDS: hydroCHLOROthiazide 12.5 MG CAP PO SCH (10:16)
[2022-02-16] MEDS: PANTOPRAZOLE 40 MG TABLET PO SCH (10:17)
[2022-02-16] MEDS: IBUPROFEN 600 MG TAB PO PRN (10:17)
[2022-02-16] MEDS: LEVOTHYROXINE 88 MCG TAB PO SCH (10:19)
[2022-02-16] MEDS: VENLAFAXINE HCL ER 75 MG CAP PO SCH (10:19)
== END 2022-02-16 14:07 | disposition home or self-care (01) | DRG 603 ==
LOC: EC 10:39 → 4SSUR 13:33
PROVIDERS: ADMIT Orthopaedic Surgery Orthopaedic Surgery of the Spine; ATTEND Orthopaedic Surgery Orthopaedic Surgery of the Spine
DX: L03.011 Cellulitis of right finger (principal); L02.511 Cutaneous abscess of right hand; I10 Essential (primary) hypertension; I34.1 Nonrheumatic mitral (valve) prolapse; M71.341 Other bursal cyst, right hand; Z79.899 Other long term (current) drug therapy; Z79.890 Hormone replacement therapy; Z79.82 Long term (current) use of aspirin; Z87.891 Personal history of nicotine dependence; Z88.5 Allergy status to narcotic agent; Z91.018 Allergy to other foods; Z91.013 Allergy to seafood; Z91.048 Other nonmedicinal substance allergy status; Z88.8 Allergy status to other drugs, medicaments and biological substances; Z88.1 Allergy status to other antibiotic agents; Z98.1 Arthrodesis status; Z28.310 Unvaccinated for COVID-19
CPT/HCPCS: 80048; 80053; 83605; 85025; 86140; 87040; 87070; 87075; 87205; 96365; 96375; 99284

== ENCOUNTER → 2023-08-16 | Outpatient (CLI) | payer MEDICARE, OTHER ==
[2023-08-16 15:06] LABS: Blood Urea Nitrogen 15.4 mg/dL (9.0-27.0); Carbon Dioxide 23.9 mmol/L (21.6-31.8); Chloride 106 mmol/L (96-109); Potassium 4.2 mmol/L (3.5-5.5); Sodium 143 mmol/L (135-145)
[2023-08-16 15:55] LABS: HCT 43.5 % (37.2-46.3); HGB 13.9 g/dL (12.0-15.0); MCH 30.2 pg (27.0-32.0); MCV 94.6 FL (80.0-97.0); Mean Platelet Volume 11.2 FL (9.5-12.2); NRBC Per 100 WBC 0 X 10*3/uL (0.00-0.01); Platelet Count 259 X 10*3/uL (140-440); RDW 14.2 % (11.5-14.5); WBC 7.73 X 10*3/uL (4.50-10.00)
== END | disposition home or self-care (01) ==
LOC: LABPAT 11:36
PROVIDERS: ATTEND Internal Medicine Interventional Cardiology
DX: Z01.812 Encounter for preprocedural laboratory examination (principal); R94.39 Abnormal result of other cardiovascular function study
CPT/HCPCS: 36415; 80051; 82565; 84520; 85027

== ENCOUNTER 2023-09-01 06:20 | Day surgery (SDC) | payer MEDICARE, OTHER ==
[2023-08-30 09:43] VITALS: BMI 33.7
[~2023-09-01 06:20] MED LIST changes: -ACETAMINOPHEN TAB 500 MG TAB PO PRN; +ALPRAZolam 0.25 MG TAB PO PRN; +ALPRAZolam 0.5 MG TAB PO PRN; -GABAPENTIN 300 MG CAP PO PRN; +HEPARIN SODIUM,PORCINE (1 ML) 2,500 UNIT in SODIUM CHLORIDE 0.9% 250 ML IRRIGATION PRN; +HEPARIN SODIUM,PORCINE 10,000 UNIT in SODIUM CHLORIDE 0.9% 1,000 ML IRRIGATION PRN; -MELOXICAM 7.5 MG TAB PO PRN; -MIDAZOLAM 2 MG/2 ML VIAL IV PRN; +NITROGLYCERIN SL TABS 0.4 MG TAB SUBLINGUAL PRN; -ONDANSETRON 4 MG/2 ML VIAL IVP PRN; -TRANEXAMIC ACID 1,000 MG in SODIUM CHLORIDE 0.9% 100 ML IVPB PRN
[2023-09-01] MEDS: IV FLUID CONTINUATION 1,000 ML IV ONE (06:35)
[2023-09-01] MEDS: SODIUM CHLORIDE 0.9% 1,000 ML in EMPTY BAG 1 BAG IV SCH (06:54)
[2023-09-01] MEDS ORDERED: ASPIRIN 325 MG TAB PO ONE (07:00)
[2023-09-01] MEDS ORDERED: VERAPAMIL 2.5 MG/ML 2 ML AMP ONE (07:14)
[2023-09-01] MEDS ORDERED: LIDOCAINE 1% INJ 10MG/ML (20 ML MDV) ONE (07:14)
[2023-09-01] MEDS ORDERED: fentaNYL (PF) 50 MCG/ML 2 ML AMP ONE (07:15)
[2023-09-01] MEDS ORDERED: HEPARIN SODIUM,PORCINE 30 ML 30 ML ONE (07:15)
[2023-09-01 07:23] VITALS: RESP 16; TEMP 98.1
[2023-09-01] MEDS: MIDAZOLAM 2 MG/2 ML VIAL IVP ONE ×2 (07:40→07:41)
[2023-09-01] MEDS: LIDOCAINE 1% INJ 10MG/ML (20 ML MDV) SQ ONE (07:42)
[2023-09-01] MEDS: VERAPAMIL 2.5 MG/ML 4 ML VIAL INTRAARTER ONE (07:43)
[2023-09-01] MEDS: HEPARIN SODIUM 1,000 UN/ML (10ML VL) IVP ONE (07:46)
[2023-09-01] MEDS: fentaNYL (PF) 50 MCG/1 ML VIAL IVP ONE (07:50)
[2023-09-01] MEDS: IOPAMIDOL-370 100ML BTL INTRATHECA ONE (07:56)
--- NOTE | 2023-09-01 08:11 | P.CARDCATH ---
Date of Procedure: 09/01/23 Description of Procedure: History: This lady has history of hypertension hypothyroidism borderline hyperlipidemia and also palpitations. Recently she has been having episodes of chest tightness and pressure and a stress test revealed mid anterior wall partially reversible defect raising the possibility of ischemia. She was advised to cardiac catheterization after due discussion regarding risks benefits and options. She was on beta-blockers and amlodipine. Procedure: Left heart catheterization and coronary angiography Procedure Details: The risks, benefits, complications, treatment options, and expected outcomes were discussed with the patient. The patient and/or family concurred with the proposed plan, giving informed consent. Patient was brought to the field laborer after IV hydration was begun and oral premedication was given. Patient was further sedated with midazolam. Patient was prepped and draped in the usual manner. Under strict aseptic precautions and local anesthesia a 6 British introducer was placed in the right radial artery. Using a JL 3/5 and a JR 4/0 catheters I performed coronary angiography and the same JR catheter was used to check LV pressures and LV gram was not performed. After the procedure was completed the sheaths and catheters were all removed. Hemostasis was achieved with TR band. Saturation in the fingers of the right hand was about 94%. Moderate conscious sedation time was 18 minutes. Patient's oxygen saturation hemodynamics and EKG were monitored closely. Findings: Hemodynamics: The left ventricle end-diastolic pressure was about 13 to 14 mmHg without any gradient across aortic valve Left Main: Normal bifurcates into LAD and circumflex LAD: Good caliber good distribution vessel gives off septal and diagonal branches surrounds all the way to the apex. Distal one fourth is somewhat small and tapers down. No significant disease in the entire LAD system CIRC: Nondominant vessel fair caliber obtuse marginal runs laterally tortuous no significant disease minor irregularities noted RCA: Dominant vessel no significant disease distally bifurcates into large PDA and PLV both of which have only minor irregularities no significant disease LV: Not performed Closure Device: TR band Complications: None Estimated Blood Loss: Minimal Impression: This patient has a fairly normal filling pressures no gradient. The right dominant system minor irregularities no significant obstructive CAD Pre Procedure Diagnosis: Abnormal stress test with chest pain Final Post Procedure Diagnosis: Nonobstructive CAD Recommendation: Continue risk factor modification with the decrease in metoprolol succinate from 25 to 12.5 mg daily, add Lipitor 10 mg daily. Advised weight reduction dietary discretion exercise. Will see her in the office within a week Complications: None; patient tolerated the procedure well. Disposition: ESU - hemodynamically stable. Condition: Stable Discharge Disposition: Discharge patient home later on today. Office visit in 1 week
[2023-09-01 15:06] VITALS: PULSE 54
[2023-09-01 15:58] VITALS: BP 112/66
== END 2023-09-01 12:07 | disposition home or self-care (01) ==
LOC: CATHCVL 06:20
PROVIDERS: ATTEND Internal Medicine Interventional Cardiology
DX: I25.10 Atherosclerotic heart disease of native coronary artery without angina pectoris (principal); I10 Essential (primary) hypertension; E78.5 Hyperlipidemia, unspecified; E03.9 Hypothyroidism, unspecified; Z88.5 Allergy status to narcotic agent; Z88.8 Allergy status to other drugs, medicaments and biological substances; Z79.899 Other long term (current) drug therapy; Z79.890 Hormone replacement therapy
CPT/HCPCS: 93458; C1769; C1894; J2250; J2001; J1644; Q9967; J3010

== ENCOUNTER 2024-05-05 16:45 | Emergency (ER) | payer MEDICARE, OTHER ==
[2024-05-05 16:52] VITALS: RESP 18; TEMP 98.5
--- NOTE | 2024-05-05 17:17 | ED ---
General Adult HPI - General Chief complaint: Extremity Problem,Nontraumatic Stated complaint: hand pain after surgery Time Seen by Provider: 05/05/24 16:59 Source: patient, RN notes reviewed Mode of arrival: ambulatory Limitations: no limitations - History of Present Illness Initial comments: 69-year-old female presents to the emergency department for evaluation of right hand pain and swelling. Patient reports that she had surgery by Dr. De León on 04-24-2024. She reports having carpal tunnel release, Dupuytren contracture release, trigger finger release. She states that she has been doing well until today. She notes increased pain and swelling to the area of the incision. She reports taking Tylenol without relief. She denies fever, chills. She admits that yesterday at therapy she was supposed to have 20 minutes of heat therapy but the alarm went off and they did not come get her and she received about an extra 10 minutes of heat therapy. - Related Data Home Medications Medication Instructions Recorded Confirmed Ascorbic Acid [Vitamin C] 500 mg PO HS 02/19/20 09/01/23 Calcium Carbonate/Vitamin D3 1 tab PO HS 02/19/20 09/01/23 [Caltrate 600 Plus D3 20 Mcg (800 Iu)] Levothyroxine Sodium 88 mcg PO DAILY 02/19/20 08/30/23 Naproxen 500 mg PO BID PRN 02/19/20 09/01/23 Omeprazole 20 mg PO DAILY 02/19/20 08/30/23 Vit C/E/Zn/Coppr/Lutein/Zeaxan 1 cap PO BID 02/19/20 09/01/23 [Preservision Areds 2 Softgel] hydroCHLOROthiazide 12.5 mg PO DAILY 02/19/20 08/30/23 Venlafaxine HCl ER [Effexor XR] 75 mg PO DAILY 04/16/20 08/30/23 Cholecalciferol [Vitamin D3 (25 125 mcg PO HS 02/13/22 09/01/23 Mcg = 1000 Iu)] amLODIPine [Norvasc] 5 mg PO HS 02/13/22 09/01/23 Loratadine-Pseudoeph 10-240 mg 1 tab PO DAILY 12/31/22 09/01/23 [Claritin-D 24 Hour] Aspirin EC [Ecotrin Low Dose] 81 mg PO HS 08/30/23 09/01/23 Metoprolol Succinate (ER) [Toprol 12.5 mg PO HS 08/30/23 09/01/23 Xl] Neomycin/Polymyxin B/Dexametha 1 applic BOTH EYES DAILY PRN 08/30/23 08/30/23 [Neomycin/Polymyxin B/Dexametha Ophth Ointment] Atorvastatin [Lipitor] 10 mg PO HS 09/01/23 09/01/23 Previous Rx's Medication Instructions Recorded Clindamycin [Cleocin] 450 mg PO Q8HR #90 capsule 05/05/24 Allergies Allergy/AdvReac Type Severity Reaction Status Date / Time codeine Allergy Nausea & Verified 05/05/24 16:48 Vomiting Mushroom Allergy Nausea & Verified 05/05/24 16:48 Vomiting shellfish derived [Crab] Allergy Nausea Verified 05/05/24 16:48 gluten AdvReac Rash/Hives Verified 05/05/24 16:48 nickel AdvReac rash,itchin Verified 05/05/24 16:48 g prednisone AdvReac "Griffith like Verified 05/05/24 16:48 passing out" sulfamethoxazole AdvReac Nausea & Verified 05/05/24 16:48 [From Bactrim] Vomiting trimethoprim [From Bactrim] AdvReac Nausea & Verified 05/05/24 16:48 Vomiting Review of Systems ROS Statement: Those systems with pertinent positive or pertinent negative responses have been documented in the HPI. ROS Other: All systems not noted in ROS Statement are negative. Past Medical History Past Medical History: Asthma, Eye Disorder, GERD/Reflux, Hypertension, Mitral Valve Prolapse (MVP), Osteoarthritis (OA), Skin Disorder, Thyroid Disorder Additional Past Medical History / Comment(s): #3-7 vertebrae was cracked and deformed." Hx of skull fracture as a baby. macular degeneration, takes hydrochlorathiazide for "a small amount of fluuid buildup around the heart.". history of anterior cervical decompression and fusion for cervical stenosis and herniated disc, cataracts surgery october 2022, fused knuckle right hand 2022, state has hives to the trunk of body for 2 months History of Any Multi-Drug Resistant Organisms: None Reported Past Surgical History: Adenoidectomy, Bladder Surgery, Section, Joint Replacement, Tonsillectomy Additional Past Surgical History / Comment(s): Section X2, ring finger ganglion cyst removed, fatty tumor removed from breast & abd., Colonoscopy, cervical fusion, bladder suspension, right knee replacement, cataract surgery bilateral Past Anesthesia/Blood Transfusion Reactions: Motion Sickness Additional Past Anesthesia/Blood Transfusion Reaction / Comment(s): no blood transfusion Past Psychological History: Anxiety, Depression Past Alcohol Use History: Daily Past Drug Use History: Marijuana - Past Family History Mother Family Medical History: Cancer, Dementia, Deep Vein Thrombosis (DVT) Additional Family Medical History / Comment(s): Breast cancer. Sister(s) Family Medical History: Deep Vein Thrombosis (DVT) General Exam Limitations: no limitations General appearance: alert, in no apparent distress Head exam: Present: atraumatic, normocephalic, normal inspection Eye exam: Present: normal appearance, PERRL, EOMI. Absent: scleral icterus, conjunctival injection, periorbital swelling Respiratory exam: Present: normal lung sounds bilaterally. Absent: respiratory distress, wheezes, rales, rhonchi, stridor Cardiovascular Exam: Present: regular rate, normal rhythm, normal heart sounds. Absent: systolic murmur, diastolic murmur, rubs, gallop, clicks Extremities exam: Present: full ROM, tenderness, normal capillary refill, other. Absent: pedal edema, joint swelling, calf tenderness Neurological exam: Present: alert, oriented X3 Psychiatric exam: Present: normal affect, normal mood Skin exam: Present: warm, dry, erythema. Absent: intact, normal color, rash Course Vital Signs 05/05/24 16:48 Temperature 98.5 F Pulse Rate 91 Respiratory 18 Rate Blood Pressure 155/88 O2 Sat by Pulse 96 Oximetry Medical Decision Making - Medical Decision Making Was pt. sent in by a medical professional or institution (Dr. PA, MUSICAL INSTRUMENT SUPERVISOR, urgent care, hospital, or [place] health care facility...) When possible be specific @ -[No] Did you speak to anyone other than the patient for history (EMS, parent, family, police, friend...)? What history was obtained from this source @ -[No] Did you review nursing and triage notes (agree or disagree)? Why? @ -[I reviewed and agree with nursing and triage notes] Were old charts reviewed (outside hosp., previous admission, EMS record, old EKG, old radiological studies, urgent care reports/EKG's, [place] health care facility records)? Report findings @ -[No old charts were reviewed] Differential Diagnosis (chest pain, altered mental status, abdominal pain women, abdominal pain men, vaginal bleeding, weakness, fever, dyspnea, syncope, h eadache, dizziness, GI bleed, back pain, seizure, CVA, palpatations, mental health, musculoskeletal)? @ -[Differential Musculoskeletal Muscular strain, contusion, ligament sprain, fracture, arthritis, septic arthritis, bursitis, cellulitis, muscle spasm, nerve compression, DVT, arterial occlusion, herpes zoster, electrolyte abnormality, tumor.... This is not meant to be in all inclusive list] EKG interpreted by me (3pts min.). @ -None X-rays interpreted by me (1pt min.). @ -[X-ray of the right hand shows] CT interpreted by me (1pt min.). @ -[None done] U/S interpreted by me (1pt. min.). @ -[None done] What testing was considered but not performed or refused? (CT, X-rays, U/S, labs)? Why? @ -[None] What meds were considered but not given or refused? Why? @ -[None] Did you discuss the management of the patient with other professionals (professionals i.e. , PA, MUSICAL INSTRUMENT SUPERVISOR, lab, RT, psych nurse, social media job titles, auto air conditioning apprentice, teacher, commissioned security officer, case packer and sealer)? Give summary @ -[Management discussed with Dr. Felix] Was smoking cessation discussed for >3mins.? @ -[No] Was critical care preformed (if so, how long)? @ -[No] Were there social determinants of health that impacted care today? How? (Homelessness, low income, unemployed, alcoholism, drug addiction, transportation, low edu. Level, literacy, decrease access to med. care, detention, rehab)? @ -[No] Was there de-escalation of care discussed even if they declined (Discuss DNR or withdrawal of care, Hospice)? DNR status @ -[No] What co-morbidities impacted this encounter? (DM, HTN, Smoking, COPD, CAD, Cancer, CVA, ARF, Chemo, Hep., AIDS, mental health diagnosis, sleep apnea, morbid obesity)? @ -[None] Was patient admitted / discharged? Hospital course, mention meds given and route, prescriptions, significant lab abnormalities, going to OR and other pertinent info. @ -[hospital course] Undiagnosed new problem with uncertain prognosis? @ -[No] Drug Therapy requiring intensive monitoring for toxicity (Heparin, Nitro, Insulin, Cardizem)? @ -[No] Were any procedures done? @ -[No] Diagnosis/symptom? @ -[default] Acute, or Chronic, or Acute on Chronic? @ -[default] Uncomplicated (without systemic symptoms) or Complicated (systemic symptoms)? @ -[default] Side effects of treatment? @ -[No] Exacerbation, Progression, or Severe Exacerbation? @ -[No] Poses a threat to life or bodily function? How? (Chest pain, [place], [place], pneumonia, PE, COPD, DKA, ARF, appy, cholecystitis, CVA, Diverticulitis, Homicidal, Suicidal, threat to staff... and all critical care pts) @ -[No] - Lab Data Result diagrams: 05/05/24 17:46 05/05/24 17:46 Lab Results 05/05/24 05/05/24 Range/Units 17:46 17:46 WBC 12.4 H (3.8-10.6) k/uL RBC 4.93 (3.80-5.40) m/uL Hgb 14.9 (11.4-16.0) gm/dL Hct 45.8 (34.0-46.0) % MCV 92.9 (80.0-100.0) fL MCH 30.2 (25.0-35.0) pg MCHC 32.5 (31.0-37.0) g/dL RDW 14.2 (11.5-15.5) % Plt Count 256 (150-450) k/uL MPV 7.0 Neutrophils % 80 % Lymphocytes % 13 % Monocytes % 5 % Eosinophils % 1 % Basophils % 0 % Neutrophils # 9.9 H (1.3-7.7) k/uL Lymphocytes # 1.6 (1.0-4.8) k/uL Monocytes # 0.6 (0-1.0) k/uL Eosinophils # 0.2 (0-0.7) k/uL Basophils # 0.0 (0-0.2) k/uL Sodium 137 (137-145) mmol/L Potassium 3.8 (3.5-5.1) mmol/L Chloride 102 (98-107) mmol/L Carbon Dioxide 28 (22-30) mmol/L Anion Gap 7 mmol/L BUN 8 (7-17) mg/dL Creatinine 0.70 (0.52-1.04) mg/dL Est GFR (CKD-EPI)AfAm >90 (>60 ml/min/1.73 sqM) Est GFR (CKD-EPI)NonAf 89 (>60 ml/min/1.73 sqM) Glucose 92 (74-99) mg/dL Calcium 9.8 (8.4-10.2) mg/dL Total Bilirubin 0.5 (0.2-1.3) mg/dL AST 21 (14-36) U/L ALT 20 (4-34) U/L Alkaline Phosphatase 136 H (38-126) U/L C-Reactive Protein 2.5 H (<1.0) mg/dL Total Protein 6.8 (6.3-8.2) g/dL Albumin 4.3 (3.5-5.0) g/dL Disposition Clinical Impression: Post-operative pain Disposition: HOME SELF-CARE Condition: Stable Additional Instructions: Please follow up with Dr. De León. Return to the emergency department for new or worsening symptoms. Prescriptions: Clindamycin [Cleocin] 450 mg PO Q8HR #90 capsule Is patient prescribed a controlled substance at d/c from ED?: No Referrals: Diana Sommer MD [Primary Care Provider] - 1-2 days
[2024-05-05 17:57] LABS: Basophils % (A) 0 %; Eosinophils # (A) 0.2 k/uL (0-0.7); Eosinophils % (A) 1 %; HCT 45.8 % (34.0-46.0); HGB 14.9 gm/dL (11.4-16.0); Lymphocytes # (A) 1.6 k/uL (1.0-4.8); Lymphocytes % (A) 13 %; MCH 30.2 pg (25.0-35.0); MCHC 32.5 g/dL (31.0-37.0); MCV 92.9 fL (80.0-100.0); Monocytes # (A) 0.6 k/uL (0-1.0); Monocytes % (A) 5 %; Neutrophils # (A) 9.9 k/uL (1.3-7.7); Neutrophils % (A) 80 %; Platelet Count 256 k/uL (150-450); RBC 4.93 m/uL (3.80-5.40); RDW 14.2 % (11.5-15.5); WBC 12.4 k/uL (3.8-10.6)
--- NOTE | 2024-05-05 18:04 | XR ---
EXAMINATION TYPE: XR hand complete RT DATE OF EXAM: 05/05/2024 5:57 PM COMPARISON: Previous radiograph dated 02/13/2022. CLINICAL INDICATION: Female, 69 years old with history of pain, recent surgery; [facility] TECHNIQUE: XR hand complete RT Frontal, lateral and oblique views were obtained. FINDINGS: No acute fracture or dislocation. Osseous structures appear demineralized. Osteotomy and fu andrew of the second digit interphalangeal joints with cannulated screw in place. No periprosthetic loo sening. IMPRESSION: 1. No acute osseous pathology. 2. Multifocal osteoarthrosis throughout the joints of the hand. [facility], , 05/05/2024 6:02 PM
[2024-05-05 18:15] LABS: ALT 20 U/L (4-34); AST 21 U/L (14-36); African American GFR (CKD) >90 (>60 ml/min/1.73 sqM); Albumin 4.3 g/dL (3.5-5.0); Alkaline Phosphatase 136 U/L (38-126); Anion Gap 7 mmol/L; Blood Urea Nitrogen 8 mg/dL (7-17); C Reactive Protein 2.5 mg/dL (<1.0); Calcium 9.8 mg/dL (8.4-10.2); Carbon Dioxide 28 mmol/L (22-30); Chloride 102 mmol/L (98-107); Glucose 92 mg/dL (74-99); Non-African American GFR(CKD) 89 (>60 ml/min/1.73 sqM); Potassium 3.8 mmol/L (3.5-5.1); Sodium 137 mmol/L (137-145); Total Bilirubin 0.5 mg/dL (0.2-1.3); Total Protein 6.8 g/dL (6.3-8.2)
[2024-05-05] MEDS: CLINDAMYCIN 150 MG CAP PO STA (18:54)
[2024-05-05 18:59] VITALS: BP 146/74; PULSE 88
[2024-05-06 08:41] LABS: Erythrocyte Sedimentation Rate 30 mm/Hr (0-30)
--- NOTE | 2024-05-06 18:17 | P.CNOR ---
History of Present Illness - HPI Consult date: 05/05/24 Requesting physician: Valentina Rubin Consult reason: other (hand pain after surgery ) History of present illness: patient presents for evaluation of right hand pain and swelling. roughly two weeks ago she underwent CTR, dupuytren's cord excision, and trigger finger release. she has been doing well but noted some increased pain and swelling mostly to the volar palm of the hand near the proximal aspect of her incision. she denies any drainage from her incision, denies any new trauma to the hand. she noted at her last therapy appointment that the heating pad that was applied was placed for longer than normal but otherwise denies any other issues. she denies any numbness or tingling to the hand, denies any pain with digital or wrist motion. Review of Systems Constitutional: Reports fever, Denies chills Cardiovascular: Denies chest pain Respiratory: Denies cough Musculoskeletal: Reports as per HPI Neurological: Denies numbness Past Medical History Past Medical History: Asthma, Eye Disorder, GERD/Reflux, Hypertension, Mitral Valve Prolapse (MVP), Osteoarthritis (OA), Skin Disorder, Thyroid Disorder Additional Past Medical History / Comment(s): #3-7 vertebrae was cracked and deformed." Hx of skull fracture as a baby. macular degeneration, takes hydrochlorathiazide for "a small amount of fluuid buildup around the heart.". history of anterior cervical decompression and fusion for cervical stenosis and herniated disc, cataracts surgery october 2022, fused knuckle right hand 2022, state has hives to the trunk of body for 2 months History of Any Multi-Drug Resistant Organisms: None Reported Past Surgical History: Adenoidectomy, Bladder Surgery, Section, Joint Replacement, Tonsillectomy Additional Past Surgical History / Comment(s): Section X2, ring finger ganglion cyst removed, fatty tumor removed from breast & abd., Colonoscopy, cervical fusion, bladder suspension, right knee replacement, cataract surgery bilateral Past Anesthesia/Blood Transfusion Reactions: Motion Sickness Additional Past Anesthesia/Blood Transfusion Reaction / Comm: no blood transfusion Past Psychological History: Anxiety, Depression Past Alcohol Use History: Daily Past Drug Use History: Marijuana - Past Family History Mother Family Medical History: Cancer, Dementia, Deep Vein Thrombosis (DVT) Additional Family Medical History / Comment(s): Breast cancer. Sister(s) Family Medical History: Deep Vein Thrombosis (DVT) Medications and Allergies Home Medications Medication Instructions Recorded Confirmed Type Ascorbic Acid [Vitamin C] 500 mg PO HS 02/19/20 09/01/23 History Calcium Carbonate/Vitamin D3 1 tab PO HS 02/19/20 09/01/23 History [Caltrate 600 Plus D3 20 Mcg (800 Iu)] Levothyroxine Sodium 88 mcg PO DAILY 02/19/20 08/30/23 History Naproxen 500 mg PO BID PRN 02/19/20 09/01/23 History Omeprazole 20 mg PO DAILY 02/19/20 08/30/23 History Vit C/E/Zn/Coppr/Lutein/Zeaxan 1 cap PO BID 02/19/20 09/01/23 History [Preservision Areds 2 Softgel] hydroCHLOROthiazide 12.5 mg PO DAILY 02/19/20 08/30/23 History Venlafaxine HCl ER [Effexor XR] 75 mg PO DAILY 04/16/20 08/30/23 History Cholecalciferol [Vitamin D3 (25 125 mcg PO HS 02/13/22 09/01/23 History Mcg = 1000 Iu)] amLODIPine [Norvasc] 5 mg PO HS 02/13/22 09/01/23 History Loratadine-Pseudoeph 10-240 mg 1 tab PO DAILY 12/31/22 09/01/23 History [Claritin-D 24 Hour] Aspirin EC [Ecotrin Low Dose] 81 mg PO HS 08/30/23 09/01/23 History Metoprolol Succinate (ER) [Toprol 12.5 mg PO HS 08/30/23 09/01/23 History Xl] Neomycin/Polymyxin B/Dexametha 1 applic BOTH EYES DAILY PRN 08/30/23 08/30/23 History [Neomycin/Polymyxin B/Dexametha Ophth Ointment] Atorvastatin [Lipitor] 10 mg PO HS 09/01/23 09/01/23 History Clindamycin [Cleocin] 450 mg PO Q8HR #90 capsule 05/05/24 Rx Allergies Allergy/AdvReac Type Severity Reaction Status Date / Time codeine Allergy Nausea & Verified 05/05/24 16:48 Vomiting Mushroom Allergy Nausea & Verified 05/05/24 16:48 Vomiting shellfish derived [Crab] Allergy Nausea Verified 05/05/24 16:48 gluten AdvReac Rash/Hives Verified 05/05/24 16:48 nickel AdvReac rash,itchin Verified 05/05/24 16:48 g prednisone AdvReac "Chama like Verified 05/05/24 16:48 passing out" sulfamethoxazole AdvReac Nausea & Verified 05/05/24 16:48 [From Bactrim] Vomiting trimethoprim [From Bactrim] AdvReac Nausea & Verified 05/05/24 16:48 Vomiting Physical Examination On exam of the right hand her palmar incision is intact there is no evidence of drainage, there is some mild trung-incisional erythema and swelling but no areas of fluctuance noted. Patient has no pain with digital range of motion or passive or active range of motion of the wrist. She has no pain over the volar aspect of the wrist and Parona space she has no tenderness along the flexor tendon sheath of any digits. Patient has intact light touch sensation throughout the hand as well as brisk capillary refill to all digits of the hand. Results - Labs Labs: White blood cell count and C-reactive protein are mildly elevatedAbnormal Lab Results - Last 24 Hours (Table) 05/05/24 Range/Units 17:46 Alkaline Phosphatase 136 H (38-126) U/L C-Reactive Protein 2.5 H (<1.0) mg/dL H & H 05/05/24 Range/Units 17:46 Hgb 14.9 (11.4-16.0) gm/dL Hct 45.8 (34.0-46.0) % Result Diagrams: 05/05/24 17:46 05/05/24 17:46 - Diagnostic results Wrist/Hand x-ray: image reviewed (Images of the right hand show no acute osseous abnormalities and no appreciable soft tissue abnormalities) Assessment and Plan Assessment: At this time it appears the patient has developed some mild cellulitis around her palmar incision however there does not appear to be any fluid collections palpable or any concern for deep infection of the hand at this time Plan: Will begin patient on antibiotic coverage to cover for MRSA Patient should continue to be nonweightbearing to the operative hand Continue her bracing/splinting as previously directed Continue home exercises as previously directed Patient is scheduled to have follow-up with therapy on Tuesday we will contact her surgeon's team and alert them to her recent ED visit to coordinate evaluation during her therapy session. Should she notice any worsening of her symptoms any new drainage from her incision she was instructed to contact myself as the on-call provider throughout the weekend otherwise she may reach out to our office during the week.
== END 2024-05-05 18:59 | disposition home or self-care (01) ==
LOC: EC 16:45
DX: G89.18 Other acute postprocedural pain (principal); Z88.2 Allergy status to sulfonamides; Z88.5 Allergy status to narcotic agent; Z91.018 Allergy to other foods; Z88.8 Allergy status to other drugs, medicaments and biological substances
CPT/HCPCS: 36415; 80053; 85025; 85652; 86140; 99283